=== PATIENT | female | born 1935 | race Caucasian/White ===

== ENCOUNTER 2017-01-04 15:03 | Emergency (ER) | payer OTHER ==
[2017-01-04 15:07] VITALS: TEMP 98.1; BMI 21.9
--- NOTE | 2017-01-04 15:08 | PDOC ---
Rapid Medical Evaluation Time Seen by Provider: 01/04/17 15:06 Medical Evaluation: Allergies Allergy/AdvReac Type Severity Reaction Status Date / Time No Known Allergies Allergy Verified 04/29/14 11:52 01/04/17 15:06 I have performed a brief in person evaluation of this patient. The patient presents with chief complaint of : blood in stool, history of hemorrhoids , no blood thinners, denies abd pain at present Pertinent PE findings: none I have ordered the following: labs The patient will proceed to the ER for further evaluation.
[2017-01-04 15:41] LABS: MCH 33.2 pg (25.7-33.7); MCHC 34.7 g/dl (32.0-36.0); MEAN CELL VOLUME 95.6 fl (80-96); MEAN PLT VOLUME 7.6 fl (7.5-11.1); PLATELET COUNT 277 K/MM3 (134-434); RDW 12.1 % (11.6-15.6); WHITE BLOOD COUNT 6.8 K/mm3 (4.0-10.0)
[2017-01-04 15:46] LABS: INR 0.89 (0.82-1.09); PROTHROMBIN TIME (PATIENT) 10.1 SEC (9.98-11.88)
[2017-01-04 15:48] LABS: ALBUMIN 3.9 g/dl (3.4-5.0); ALK PHOS 80 U/L (45-117); ANION GAP 10 (8-16); BILIRUBIN,TOTAL 0.5 mg/dL (0.2-1.0); CALCIUM 9.2 mg/dL (8.5-10.1); CO2 26 mmol/L (21-32); CREATININE 1.1 mg/dL (0.55-1.02); GLUCOSE,RANDOM 123 mg/dL (74-106); SGOT/AST 17 U/L (15-37); SGPT/ALT 24 U/L (12-78); TOT PROT 7.1 g/dl (6.4-8.2)
--- NOTE | 2017-01-04 15:56 | PDOC ---
History of Present Illness <AnthonyFidelina Mckayla - Last Filed: 01/04/17 17:36> - History of Present Illness Initial Comments: 01/04/17 16:23 Ms. Guerrero is an 81 yo female w/ pmh of htn who presents c/o 1 episode of painless BRB while wiping. She reports she has never had anything like this before and is unsure if it was vaginal or per rectum. She has no other complaints but is very worried. The patient denies chest pain, shortness of breath, headache and dizziness. Denies fever, chills, nausea, vomit, diarrhea and constipation. Denies dysuria, frequency, urgency and hematuria. Allergies: NKDA <Cirilo Can - Last Filed: 01/04/17 17:41> - General Chief Complaint: Rectal Bleed Stated Complaint: RECTAL BLEED Time Seen by Provider: 01/04/17 15:06 Past History <AnthonyFidelinalinh Block - Last Filed: 01/04/17 17:36> - Past Medical History COPD: No HTN: Yes - Suicide/Smoking/Psychosocial Hx Smoking History: Never smoked <Cirilo Can - Last Filed: 01/04/17 17:41> - Past Medical History Allergies/Adverse Reactions: Allergies Allergy/AdvReac Type Severity Reaction Status Date / Time No Known Allergies Allergy Verified 01/04/17 15:06 Home Medications: Ambulatory Orders Metoprolol Tartrate [Lopressor -] 100 mg PO DAILY 04/29/14 Nitrofurantoin Monohyd/M-Cryst [Macrobid -] 100 mg PO BID #20 capsule 01/04/17 Review of Systems - Review of Systems Comments:: 01/04/17 16:27 GENERAL/CONSTITUTIONAL: No fever or chills. No weakness. HEAD, EYES, EARS, NOSE AND THROAT: No change in vision. No ear pain or discharge. No sore throat. CARDIOVASCULAR: No chest pain or shortness of breath RESPIRATORY: No cough, wheezing, or hemoptysis. GASTROINTESTINAL: No nausea, vomiting, diarrhea or constipation. GENITOURINARY: +Incontinence reported today. Mass reported in vaginal area. MUSCULOSKELETAL: No joint or muscle swelling or pain. No neck or back pain. SKIN: No rash NEUROLOGIC: No headache, vertigo, loss of consciousness, or change in strength/ sensation. ENDOCRINE: No increased thirst. No abnormal weight change HEMATOLOGIC/LYMPHATIC: No anemia, easy bleeding, or history of blood clots. ALLERGIC/IMMUNOLOGIC: No hives or skin allergy. <Cirilo Can - Last Filed: 01/04/17 17:41> *Physical Exam - Vital Signs Last Vital Signs Temp Pulse Resp BP Pulse Ox 98.1 F 96 H 20 152/90 97 01/04/17 15:06 01/04/17 15:06 01/04/17 15:06 01/04/17 15:06 01/04/17 15:06 <Fidelina Cruz - Last Filed: 01/04/17 17:36> - Vital Signs Last Vital Signs Temp Pulse Resp BP Pulse Ox 98.1 F 96 H 20 152/90 97 01/04/17 15:06 01/04/17 15:06 01/04/17 15:06 01/04/17 15:06 01/04/17 15:06 - Physical Exam Comments: 01/04/17 16:27 GENERAL: Awake, alert, and fully oriented, in no acute distress HEAD: No signs of trauma, normocephalic, atraumatic EYES: PERRLA, EOMI, sclera anicteric, conjunctiva clear ENT: Auricles normal inspection, hearing grossly normal, nares patent, oropharynx clear without exudates. Moist mucosa NECK: Normal ROM, supple, no lymphadenopathy, JVD, or masses LUNGS: No distress, speaks full sentences, clear to auscultation bilaterally HEART: Regular rate and rhythm, normal S1 and S2, no murmurs, rubs or gallops, peripheral pulses normal and equal bilaterally. ABDOMEN: Soft, nontender, normoactive bowel sounds. No guarding, no rebound. No masses EXTREMITIES: Normal inspection, Normal range of motion, no edema. No clubbing or cyanosis. NEUROLOGICAL: Cranial nerves II through XII grossly intact. Normal speech, normal gait, no focal sensorimotor deficits SKIN: Warm, Dry, normal turgor, no rashes or lesions noted. : Reducible Vaginal prolapse noted. <Cirilo Can - Last Filed: 01/04/17 17:41> ED Treatment Course - LABORATORY CBC & Chemistry Diagram: 01/04/17 15:15 01/04/17 15:15 - ADDITIONAL ORDERS Additional order review: Laboratory Results 01/04/17 01/04/17 15:15 15:15 PT with INR 10.10 INR 0.89 Sodium 140 Potassium 4.4 Chloride 104 Carbon Dioxide 26 Anion Gap 10 BUN 27 H Creatinine 1.1 H Creat Clearance w eGFR 47.67 Random Glucose 123 H Calcium 9.2 Total Bilirubin 0.5 AST 17 ALT 24 Alkaline Phosphatase 80 Total Protein 7.1 Albumin 3.9 01/04/17 15:15 RBC 4.05 MCV 95.6 MCHC 34.7 RDW 12.1 MPV 7.6 <AnthonyFidelinalinh Block - Last Filed: 01/04/17 17:36> - LABORATORY CBC & Chemistry Diagram: 01/04/17 15:15 01/04/17 15:15 - ADDITIONAL ORDERS Additional order review: Laboratory Results 01/04/17 15:15 Sodium 140 Potassium 4.4 Chloride 104 Carbon Dioxide 26 Anion Gap 10 BUN 27 H Creatinine 1.1 H Creat Clearance w eGFR 47.67 Random Glucose 123 H Calcium 9.2 Total Bilirubin 0.5 AST 17 ALT 24 Alkaline Phosphatase 80 Total Protein 7.1 Albumin 3.9 <Cirilo Can - Last Filed: 01/04/17 17:41> Medical Decision Making - Medical Decision Making 01/04/17 17:18 Ms. Guerrero presents with acute vaginal prolapse after straining during BM. Easily reducible. Will consult OBGYN and follow-recommendations as given. 01/04/17 17:[address] Blanco for at 10 am. Patient verbalized understanding and will present for evaluation. <Cirilo Can - Last Filed: 01/04/17 17:41> *DC/Admit/Observation/Transfer <Fidelina Cruz - Last Filed: 01/04/17 17:36> <Cirilo Can - Last Filed: 01/04/17 17:41> Diagnosis at time of Disposition: Vaginal prolapse - Discharge Dispostion Disposition: HOME - Prescriptions Prescriptions: Nitrofurantoin Monohyd/M-Cryst [Macrobid -] 100 mg PO BID #20 capsule - Referrals Referrals: Ariel Fernandes MD [Primary Care Provider] - Samantha Blanco MD [Staff Physician] - - Patient Instructions Printed Discharge Instructions: DI for Vaginal Prolapse Additional Instructions: YOU HAVE AN APPOINTMENT THIS WednesdayJANUARY 07 [address] SAMANTHA BLANCO
--- NOTE | 2017-01-04 17:27 | PDOC ---
Attending Attestation - Resident Resident Name: Cirilo Can - ED Attending Attestation I have performed the following: I have examined & evaluated the patient, The case was reviewed & discussed with the resident, I agree w/resident's findings & plan, Exceptions are as noted - HPI HPI: 01/04/17 17:26 81 yo female p/w sudden vaginal blood and incontinence - Physicial Exam PE: 01/04/17 17:27 81 yo female alert and conversant head normocepjhalic,no evidence od f trauma neck supple,no jvd lungs cta b/l cvs [id number] abd sot nontender rectal no blood vaginal prolapse ext no edema,no erythema,no deformity skin warm,dry neuro axox3,ambulatory,no gross focal neuro deficits - Medical Decision Making 01/04/17 17:[address] Marya Holden ,pt has appt now 10 am at [address]
[2017-01-04] MEDS ORDERED: NITROFURANTOIN MACROCRYSTAL 50 MG CAPSULE (FP) ONE (17:44)
[2017-01-04] MEDS ORDERED: NITROFURANTOIN MACROCRYSTAL 50 MG CAPSULE (FP) PO SCH (17:45)
[2017-01-04 17:50] VITALS: BP 148/66; PULSE 89
== END 2017-01-04 17:56 | disposition home or self-care (01) ==
LOC: JER 15:03
DX: N81.10 Cystocele, unspecified (principal); I10 Essential (primary) hypertension
CPT/HCPCS: 36415; 80053; 85027; 85610; 99282-25

== ENCOUNTER 2017-02-16 13:07 | Day surgery (SDC) | payer OTHER ==
[2017-02-15 11:25] VITALS: BMI 21.9
[2017-02-16] MEDS ORDERED: ceFAZolin SODIUM 1 GM VIAL ONE (14:14)
[2017-02-16] MEDS ORDERED: LIDOCAINE 1%/EPI 1:100000 (20 ML MULTI DOSE VIAL) ONE (16:01)
[2017-02-16] MEDS ORDERED: ROCURONIUM BROMIDE 50 MG/5 ML VIAL ONE (16:12)
[2017-02-16] MEDS ORDERED: PROPOFOL 20 ML ONE (16:12)
[2017-02-16] MEDS ORDERED: fentaNYL CITRATE 250 MCG/5 ML VIAL ONE (16:12)
[2017-02-16] MEDS ORDERED: SUCCINYLCHOLINE CHLORIDE 200 MG/10 ML VIAL ONE (16:12)
[2017-02-16] MEDS ORDERED: LIDOCAINE HCL/PF 2% SDV 5ML VIAL ONE (16:14)
[2017-02-16] MEDS ORDERED: DESFLURANE GAS 240 ML BOTTLE IH ONE (16:25)
--- NOTE | 2017-02-16 16:39 | HP ---
History & Physical Update - History History: No Change - Physical Physical: No Change - Assessment Assessment: No Change - Plan Plan: No Change
[2017-02-16] MEDS ORDERED: PHENYLEPHRINE HCL 10 MG/1 ML SINGLE DOSE VIAL ONE (16:49)
[2017-02-16] MEDS ORDERED: ceFAZolin SODIUM 1 GM VIAL IVPB ONE (16:55)
[2017-02-16] MEDS ORDERED: BUPIVACAINE HCL/PF 0.5% (5MG/ML) 10 ML VIAL IJ ONE (17:12)
[2017-02-16] MEDS ORDERED: DEXAMETHASONE SOD PHOSPHATE 4 MG/1 ML VIAL ONE (18:40)
[2017-02-16] MEDS ORDERED: KETOROLAC TROMETHAMINE 30 MG/1 ML VIAL ONE (18:40)
[2017-02-16] MEDS ORDERED: diphenhydrAMINE HCL 25 MG CAPSULE (FP) PO PRN (18:46)
[2017-02-16] MEDS ORDERED: ONDANSETRON 4 MG/2 ML VIAL IVPB PRN (18:46)
[2017-02-16] MEDS ORDERED: HYDROmorphone HCL CARPU-JECT 2 MG/1 ML DISP.SYRIN IVPUSH PRN ×2 (18:46→19:13)
[2017-02-16] MEDS ORDERED: METOCLOPRAMIDE HCL INJECTION 10 MG/2 ML VIAL IVPUSH PRN (18:46)
[2017-02-16] MEDS ORDERED: PROCHLORPERAZINE INJECTION 10 MG/2 ML VIAL IVPB PRN (18:46)
[2017-02-16] MEDS ORDERED: oxyCODONE HCL 5 MG TABLET PO PRN (18:50)
--- NOTE | 2017-02-16 18:55 | OP ---
Operative Note - Note: Operative Date: 02/16/17 Pre-Operative Diagnosis: right adnexal mass Operation: Robotic hysterectomy, bilateral salpingoophorectomy Findings: Right ovary with 8 cm cystic mass, smooth. Normal left tube and ovary, normal uterus. Grade 3 descensus Post-Operative Diagnosis: Same as Pre-op Surgeon: Leola Goodman Scrub Woman: Marya Blanco Anesthesia: General, Local Specimens Removed: uterus, cervix, bilateral tubes and ovaries, washings Estimated Blood Loss (mls): 25 Operative Report Dictated: Yes
[2017-02-16] MEDS ORDERED: GLYCOPYRROLATE 0.2 MG/1 ML VIAL ONE (18:59)
[2017-02-16] MEDS ORDERED: NEOSTIGMINE METHYLSULFATE 0.5 MG/1 ML - 10 ML MDV ONE (18:59)
[2017-02-16] MEDS ORDERED: ONDANSETRON 4 MG/2 ML VIAL ONE (19:05)
[2017-02-16] MEDS ORDERED: PROMETHAZINE HCL 25 MG/1 ML VIAL IVPUSH PRN (19:27)
[2017-02-16] MEDS ORDERED: LORazepam 2 MG/ML SDV VIAL IVPUSH ONE (19:30)
[2017-02-16] MEDS ORDERED: HYDROmorphone HCL CARPU-JECT 2 MG/1 ML DISP.SYRIN ONE (19:37)
[2017-02-16] MEDS ORDERED: KETOROLAC TROMETHAMINE 15 MG/ML VIAL ONE (21:04)
[2017-02-16] MEDS: KETOROLAC TROMETHAMINE 15 MG/ML VIAL IVPUSH SCH (21:06)
[2017-02-16] MEDS: LACTATED RINGERS SOLUTION 1,000 ML IV SCH ×2 (21:40→22:58)
[2017-02-16] MEDS: ACETAMINOPHEN 325 MG TABLET (FP) PO SCH (22:55)
[2017-02-17] MEDS: ACETAMINOPHEN 325 MG TABLET (FP) PO SCH ×3 (00:48→13:47)
[2017-02-17] MEDS: KETOROLAC TROMETHAMINE 15 MG/ML VIAL IVPUSH SCH ×2 (02:59→09:46)
[2017-02-17 08:09] LABS: HEMATOCRIT 33.3 % (32.4-45.2); HEMOGLOBIN 11.1 GM/dL (10.7-15.3); MCH 31.9 pg (25.7-33.7); MCHC 33.2 g/dl (32.0-36.0); MEAN CELL VOLUME 96.1 fl (80-96); MEAN PLT VOLUME 7.2 fl (7.5-11.1); PLATELET COUNT 280 K/MM3 (134-434); RBC 3.46 M/mm3 (3.60-5.2); RDW 12.1 % (11.6-15.6); WHITE BLOOD COUNT 10.3 K/mm3 (4.0-10.0)
--- NOTE | 2017-02-17 08:36 | PN ---
Progress Note (short form) - Note Progress Note: Post op day#1.S/p Robotic,laproscopic hysterectomy with BSO under GA uneventful.Patient stable.No any anesthesia related problem.Patient DC from the anesthesia care.
--- NOTE | 2017-02-17 09:15 | PN ---
Progress Note, Physician Chief Complaint: 81 yo post Robotic TH/BSO, POD # 1 History of Present Illness: Patient voided 3 times, + flatus, tolerating regular diet, ambulating pain well controlled - Current Medication List Current Medications: Active Medications Acetaminophen (Tylenol -) 650 mg PO Q6HPO [facility] Last Admin: 02/17/17 05:29 Dose: 650 mg Amlodipine Besylate (Norvasc -) 5 mg PO DAILY [facility] Diphenhydramine HCl (Benadryl -) 25 mg PO Q6H PRN PRN Reason: FOR ITCHING Hydromorphone HCl (Dilaudid Injection -) 0.5 mg IVPUSH Q3H PRN PRN Reason: PAIN Hydromorphone HCl (Dilaudid Injection -) 0.5 mg IVPUSH [id number] PRN PRN Reason: PAIN Last Admin: 02/16/17 19:38 Dose: 0.5 mg Lactated Ringer's (Lactated Ringers Solution) 1,000 mls @ 75 mls/hr IV ASDIR [facility] Last Admin: 02/16/17 22:58 Dose: Not Given Ketorolac Tromethamine (Toradol Injection -) 15 mg IVPUSH Q6H-IV [facility] Stop: 02/21/17 20:59 Last Admin: 02/17/17 02:59 Dose: 15 mg Lisinopril (Prinivil) 40 mg PO DAILY [facility] Metoclopramide HCl (Reglan Injection -) 10 mg IVPUSH Q6H PRN PRN Reason: NAUSEA AND/OR VOMITING Metoprolol Succinate (Toprol Xl -) 100 mg PO DAILY [facility] Ondansetron HCl (Zofran Injection) 8 mg IVPB Q8H PRN PRN Reason: NAUSEA Oxycodone HCl (Roxicodone -) 5 mg PO Q4H PRN PRN Reason: PAIN Prochlorperazine Edisylate (Compazine Injection -) 25 mg IVPB Q6H PRN PRN Reason: NAUSEA AND/OR VOMITING Promethazine HCl (Phenergan Injection -) 6.25 mg IVPUSH Q6H PRN PRN Reason: NAUSEA-FOR RESCUE AFTER 15 MIN Ranitidine HCl (Zantac -) 150 mg PO DAILY [facility] - Objective Vital Signs: Vital Signs Temperature 97.9 F 01/10/18 05:35 Pulse Rate 83 02/17/17 05:35 Respiratory Rate 18 02/17/17 05:35 Blood Pressure 125/56 02/17/17 05:35 O2 Sat by Pulse Oximetry (%) 96 02/16/17 23:52 Constitutional: Yes: Well Nourished HENT: Yes: Atraumatic, Normocephalic Cardiovascular: Yes: Regular Rate and Rhythm Respiratory: Yes: CTA Bilaterally Gastrointestinal: Yes: Normal Bowel Sounds, Soft (well healing puncture incisions) Genitourinary: Yes: WNL (no CVA tenderness) Musculoskeletal: Yes: WNL Extremities: Yes: WNL Edema: No Wound/Incision: Yes: Clean/Dry, Well Approximated Neurological: Yes: WNL, Alert, Oriented ...Motor Strength: WNL Psychiatric: Yes: WNL, Alert, Oriented Labs: CBC, BMP 02/17/17 06:00 Assessment/Plan 81yo Post Robotic TH/BSO for Right ovarian mass fz benign VSS, Afibrile, Pain well controlled h/h stable Plan to d/c home follow up with Dr. Goodman and Bella arranged
[2017-02-17 09:24] LABS: CHLORIDE 104 mmol/L (98-107); POTASSIUM 4.9 mmol/L (3.5-5.1); SODIUM 137 mmol/L (136-145)
[2017-02-17 09:41] LABS: ANION GAP 12 (8-16); BLOOD UREA NITROGEN 27 mg/dL (7-18); CO2 21 mmol/L (21-32); CREATININE 1.1 mg/dL (0.55-1.02); GLUCOSE,RANDOM 106 mg/dL (74-106)
[2017-02-17 09:42] VITALS: BP 112/48; PULSE 90; TEMP 98.9
[2017-02-17] MEDS ORDERED: amLODIPine BESYLATE 5 MG TABLET (FP) PO SCH (10:00)
[2017-02-17] MEDS ORDERED: RANITIDINE HCL 150 MG TABLET (FP) PO SCH (10:00)
[2017-02-17] MEDS ORDERED: PATIENT'S OWN MEDICATION (NON-FORMULARY) (Amlodipine Besylate/Benazepril [Lotrel 5-40 Mg C PO SCH (10:00)
[2017-02-17] MEDS ORDERED: METOPROLOL SUCCINATE 100 MG TAB.SR.24H (FP) PO SCH (10:00)
[2017-02-17] MEDS ORDERED: LISINOPRIL 20 MG TABLET (FP) PO SCH (10:00)
--- NOTE | 2017-02-17 10:59 | OP ---
DATE OF OPERATION: 02/16/2017 PREOPERATIVE DIAGNOSIS: Right adnexal mass. POSTOPERATIVE DIAGNOSIS: Right adnexal mass. PROCEDURE: Robotic-assisted total hysterectomy and bilateral salpingo-oophorectomy. SURGEON: Leola Goodman MD CO-SURGEON: Marya Blanco MD ANESTHESIA: General endotracheal and local. ESTIMATED BLOOD LOSS: 25 mL. COMPLICATIONS: None. INDICATIONS: This is an 81-year-old 2, para 2, with history of urinary incontinence. She had a pelvic ultrasound which showed a 9-cm septated mass. CA 125 was 11 on January 07, 2017. Patient was counseled regarding surgical management. Risks, benefits, indications, and alternatives were discussed with the patient. All questions were answered. Informed consent was signed. FINDINGS: A grade 3 uterine descensus, cervix and vagina with no lesions. Intraabdominal findings, normal liver edge, normal 6-week size uterus, left tube and ovary normal, an 8-cm right ovarian cyst with smooth wall. There was no other evidence of disease. DESCRIPTION OF PROCEDURE: The patient was taken to the operating room, placed in the dorsal supine position. General endotracheal anesthesia was obtained without difficulty. She was then placed in the dorsal lithotomy position, prepped and draped in a normal sterile fashion. Steven catheter was placed in the bladder. Speculum was placed in the vagina. The cervix was grasped with a single-tooth tenaculum. A figure-of-8 stitch of 0 Vicryl was placed, and a VCare uterine manipulator was placed. Tenaculum and speculum were then removed. Attention was turned to the patients abdomen. Then, 5 mL of 0.25% Marcaine was injected into the umbilicus, and an 8-mm incision was made with a scalpel. While tenting the anterior abdominal wall, the Veress needle was inserted intraabdominally, and the abdomen was insufflated with CO2 gas. Then, 8-mm trocars were placed in the left mid and right mid quadrants, and a 5-mm aerosol port was placed in the left lower quadrant. All trocars were placed under direct visualization after injecting 0.25% Marcaine. A thorough examination of the abdomen and pelvis revealed the above noted findings. The da Peg Robot was then docked without difficulty. Peritoneal washings were taken using normal saline. The left adnexa was elevated. Left ureter was noted to be well away from the field of dissection. Left infundibulopelvic ligament was clamped, cauterized, and transected. This was carried through the broad ligament and the round ligament and the vesicouterine peritoneum anteriorly. The right adnexa was elevated. The right ureter was noted to be well away from the field of dissection. The right infundibulopelvic ligament was clamped, cauterized, and transected. This was carried through the broad ligament and the round ligament and the vesicouterine peritoneum anteriorly. The bladder was dissected off the anterior cervix and upper vagina. The uterine arteries bilaterally were cauterized. They were clamped, cauterized, and transected. The cardinal ligaments were serially clamped, cauterized, and transected. Then, the uterosacral ligament were clamped, cauterized, and transected. The vaginotomy incision was made circumferentially around the cervix. Uterus, cervix, left tube and ovary were passed through the vagina, and the right tube and ovary were passed through an EndoCatch bag through the vagina. The cyst was taken out intact. The vagina was closed in a running continuous fashion using 2-0 V-Loc suture. The pelvis was thoroughly irrigated and noted to be hemostatic. All instruments were removed from the patients abdomen. The da Peg robot was then undocked. Skin was closed with 4-0 Monocryl, and Dermabond was applied. The patient was extubated and transferred in stable condition to PACU. Nicole [id number]
--- NOTE | 2017-02-18 14:50 | PATH ---
Surgical Pathology Report Patient Name: TIM MADERA [facility]. Rec. #: [id number] /Age/Gender: 1935 (Age: 81) / F Account: [id number] Location: [facility] Taken: 02/16/2017 Received: 02/16/2017 Reported: 02/18/2017 Physicians: Leola Goodman MD Specimen(s) Received A: RIGHT OVARIAN CYST B: UTERUS, CERVIX, WITH OR WITH LEFT TUBE AND OVARY Clinical History Right adnexal mass Intraoperative Consult Diagnosis Right ovarian cyst, frozen section: Benign serous cystadenoma. No malignant features identified grossly or on operations support representative frozen section. Lilliam Zamora M.D., February 16, 2017 Final Diagnosis A. RIGHT FALLOPIAN TUBE AND OVARY, SALPINGO-OOPHORECTOMY: OVARY WITH BENIGN SEROUS CYSTADENOMA, BENIGN FALLOPIAN TUBE. B. UTERUS AND CERVIX WITH LEFT FALLOPIAN TUBE AND OVARY, HYSTERECTOMY AND SALPINGO-OOPHORECTOMY: UTERUS AND CERVIX, 51 GRAMS, WITH 2 LEIOMYOMAS, ATROPHIC ENDOMETRIUM, CERVIX WITH CHRONIC INFLAMMATION, AND MEDIAL CALCIFICATION OF MYOMETRIAL BLOOD VESSELS. BENIGN LEFT FALLOPIAN TUBE AND OVARY PRESENT. Electronically Signed Johnathon Zamora M.D. Gross Description A. Received fresh labeled "right ovarian cyst" is a 155 gram, 14 x 8 x 4.5 cm multiloculated cystic mass with a smooth surface. There is a 15 x 0.3 cm attached possible fallopian tube. Cut surface reveals a smooth riley lining with no solid or papillary areas. The cyst is filled with clear yellow serous fluid. [employer] sections are frozen, and the frozen remainder is submitted in cassette FS A1. Additional sections will be submitted after overnight fixation. Additional sections are submitted in cassettes A2-A7 B. Received in formalin labeled "uterus, cervix, left fallopian tube and ovary," is a 51 g hysterectomy specimen including a uterus, attached cervix and an attached left fallopian tube and left ovary., The specimen measures 7.5 cm from superior to inferior, 4.5 cm from left to right and 2.5 cm from anterior to posterior. The cervix measures 3 cm in length and averages 1.7 cm in diameter. The ectocervix is iqbal, smooth and glistening. The endocervix is unremarkable. The endometrial cavity measures 3.2 cm in length and 2.2 cm from cornu to cornu. The endometrium is iqbal-pink and averages 0.1 cm in thickness. The myometrium displays 2 intramural nodules measuring 0.6 and 0.8 cm in greatest dimension. The cut surface of the nodules is iqbal, rubbery and displays whorled architecture. No areas of hemorrhage or necrosis are identified. The remaining myometrium is iqbal-pink and averages 1.2 cm in thickness. The left fimbriated fallopian tube measures 4.5 cm in length. The outer surface is iqbal with attached fat and abundant, multifocal paratubal cysts averaging 0.3 cm in greatest dimension. The attached left ovary measures 2.5 x 0.8 x 0.8 cm. The outer surface is iqbal, convoluted and smooth. Sectioning reveals unremarkable ovarian parenchyma. [employer] sections are submitted in 10 cassettes as follows: 1-anterior cervix; 2-posterior cervix; 6-1-vbwvgjng endomyometrium; 6-7-idtglddzs endomyometrium; 7-intramural nodules; 8-left fallopian tube fimbria; 2-akvco-cfgbqaik of left fallopian tube; 10-left ovary. REECE/02/16/2017 [facility]02/16/2017
== END 2017-02-17 13:41 | disposition home or self-care (01) ==
LOC: JASU-SURG 13:07 → J7W 22:05 → JASU-SURG 02-17 13:41
PROVIDERS: ATTEND Obstetrics & Gynecology Gynecologic Oncology
PROC: 0UT7FZZ Resection of Bilateral Fallopian Tubes, Via Natural or Artificial Opening With Percutaneous Endoscopic Assistance (ICD-10-PCS; 2017-02-16)
PROC: 0UT9FZZ Resection of Uterus, Via Natural or Artificial Opening With Percutaneous Endoscopic Assistance (ICD-10-PCS; principal; 2017-02-16 15:00)
PROC: 0UT2FZZ Resection of Bilateral Ovaries, Via Natural or Artificial Opening With Percutaneous Endoscopic Assistance (ICD-10-PCS; 2017-02-16 15:00)
DX: D27.0 Benign neoplasm of right ovary (principal); D25.9 Leiomyoma of uterus, unspecified; N85.8 Other specified noninflammatory disorders of uterus; N72 Inflammatory disease of cervix uteri
CPT/HCPCS: 36415; 80048; 85027; 86850; 86900; 86901; 88307-TC; 88331-TC; 94010; 94760

== ENCOUNTER 2017-02-19 07:42 | Inpatient (IN) | payer OTHER ==
[2017-02-19] MEDS ORDERED: dilTIAZem HCL 50 MG/10 ML - 10 ML VIAL IVPUSH ONE ×3 (07:55→09:11)
--- NOTE | 2017-02-19 08:23 | PDOC ---
Attending Attestation - Medical Decision Making 02/19/17 13:45 First call placed to Dr. Hale at 13:45. Awaiting call back. Second call placed to Dr. Hale at 14:25. Awaiting call back. First call placed to Dr. Falcon at 15:58. Awaiting call back. Case discussed with Dr. Falcon at 16:19. Multiple pages placed overhead to Dr. Fuller, will call service. First call placed to Dr. Fuller's answering service at 16:04. Awaiting call back. Second call placed to Dr. Fuller at 16:24. Case discussed at this time. First call placed to Dr. Goodman at 16:37. Case discussed at this time. Documentation prepared by Marisela López, acting as certified ophthalmic medical technician for Darius Garcia MD. <Marisela López - Last Filed: 02/19/17 16:37> - Resident Resident Name: Blayne Millan - ED Attending Attestation I have performed the following: I have examined & evaluated the patient, The case was reviewed & discussed with the resident, I agree w/resident's findings & plan, Exceptions are as noted - HPI HPI: 02/19/17 08:22 81y F hx of htn, 3 day ss/p hysterectomy presents with complaint of burning chest/epigastric pain. Pt states that since dc she has been having alot of abd pain that worsened significantly last night. She endorses feeling pain when walter urinates an feeling like she needs to go to ebathroom. She denies any sob, palpitatoins,numbness.tingling/weakness, vision changes, lightheadedness, fever/ chills, vomiting. per EMS, she was noted to be in the 180s-190s HR, SVT vs afib - was given adenosine 6 followed by 12 that failed to break the rhthm - no p waves were seen - pt was started on dilitaizem by EMS with improvement of her ratne. on arrival, her HR was 130s and irregularly irregular. she was given another 30mg of diltiazem here with improvement to 90s but increased again to 130s. Given another 20mg of dilitaizem. pt denies hx of afib, denies any prior similar episodes of pain. on exam the pt has moderate diffuse epigastric tenderness, wounds are c/d/i on abdomen lungs are clear HR is irregularly irregular no LE edema, no calf tenderness ddx: gerd, pe (as pt is hypoxic, new afib), acs, ?ischemia will ck labs diltiazem IV with PO chaser ekg pt placed on threat monitoring analyst will start a/c CRITICAL CARE DOCUMENTATION: I spent ~35 minutes of Critical Care time, excluding separately billable procedures, involving high complexity decision making to assess, manipulate and support vital system function(s) to treat single or multiple vital organ system failure and/or to prevent further life threatening deterioration of the patient' s condition. - Physicial Exam PE: 02/21/17 08:09 see above - Medical Decision Making 02/19/17 12:59 pts repeat ekg noted for sinus rythjma seems like spontaneously resolution of her afib to nsr will d/w surgery will admit for further management 02/19/17 15:57 pt orginally presente dwith severe intermittent epgiastric/chest pain - ? suspect he rpain may be secondary to her hiatal hernia? her pain is largely resolved currently kimberli grier - requests dr. Falcon for ocnsultation. 02/19/17 16:[address] Sade Fuller - (Cardiology) pt thom llikely need a/'c - but requests d/w surgeon to confirm there is no concern for intrabdominal bleeding, and if they feel a/c can be started we will start something will call dr. will case dw dr latasha navarro to see the patient - but requetss formal consult from dr. will 02/19/17 16:[address] goodman - states that she would gladly come to evaluate the patient if we thikn this may be post op complication but she notes the pt has had this pain preceeding her surgery (epigastric/chest burning) and she thinks it may be the gastritis/gerd. she is also ok with a/c for her afib as there aer no overt signs of bleeding, anemia, or free fluid in her abdomen. CRITICAL CARE DOCUMENTATION: I spent ~45 minutes of Critical Care time, excluding separately billable procedures, involving high complexity decision making to assess, manipulate and support vital system function(s) to treat single or multiple vital organ system failure and/or to prevent further life threatening deterioration of the patient' s condition. <Darius Garcia - Last Filed: 02/21/17 08:09>
[2017-02-19 08:41] LABS: BASO % 0.1 % (0-2.0); HEMATOCRIT 34.7 % (32.4-45.2); HEMOGLOBIN 11.5 GM/dL (10.7-15.3); LYMPH % 5.6 % (8-40); MCH 31.5 pg (25.7-33.7); MCHC 33.1 g/dl (32.0-36.0); MEAN CELL VOLUME 95.2 fl (80-96); MEAN PLT VOLUME 7.4 fl (7.5-11.1); NEUT % 87.3 % (42.8-82.8); PLATELET COUNT 298 K/MM3 (134-434); RBC 3.64 M/mm3 (3.60-5.2); RDW 12.1 % (11.6-15.6)
[2017-02-19 08:42] LABS: INR 0.93 (0.82-1.09); PROTHROMBIN TIME (PATIENT) 10.5 SEC (9.98-11.88)
[2017-02-19 08:44] VITALS: BMI 22.3
[2017-02-19 08:45] LABS: ACTIVATED PTT 26.4 SECONDS (26.9-34.4)
[2017-02-19 08:52] LABS: ALBUMIN 2.9 g/dl (3.4-5.0); ANION GAP 16 (8-16); BILIRUBIN,TOTAL 0.7 mg/dL (0.2-1.0); BLOOD UREA NITROGEN 17 mg/dL (7-18); CALCIUM 8.5 mg/dL (8.5-10.1); CHLORIDE 101 mmol/L (98-107); CO2 20 mmol/L (21-32); CREATININE 0.9 mg/dL (0.55-1.02); GLUCOSE,RANDOM 117 mg/dL (74-106); MAGNESIUM 1.8 mg/dL (1.8-2.4); PHOSPHOROUS 1.7 mg/dL (2.5-4.9); POTASSIUM 3.7 mmol/L (3.5-5.1); SGOT/AST 19 U/L (15-37); SGPT/ALT 21 U/L (12-78); SODIUM 137 mmol/L (136-145); TOT PROT 5.6 g/dl (6.4-8.2)
[2017-02-19 08:56] LABS: ALK PHOS 65 U/L (45-117)
[2017-02-19] MEDS ORDERED: SODIUM CHLORIDE 500 ML IV STA (09:16)
[2017-02-19] MEDS ORDERED: dilTIAZem HCL 30 MG TABLET (FP) PO ONE (09:21)
[2017-02-19] MEDS ORDERED: PANTOPRAZOLE SODIUM 40 MG VIAL IVPUSH ONE (09:25)
[2017-02-19] MEDS ORDERED: morphine CARPU-JECT 4 MG/1 ML DISP.SYRIN IVPUSH ONE (09:25)
[2017-02-19] MEDS ORDERED: MAG HYDROX/AL HYDROX/SIMETH 355 ML ORAL.SUSP PO ONE (09:43)
[2017-02-19] MEDS ORDERED: ONDANSETRON 4 MG/2 ML VIAL IVPB ONE (09:43)
--- NOTE | 2017-02-19 11:25 | PDOC ---
History of Present Illness - History of Present Illness Initial Comments: 02/19/17 11:25 81y F hx of htn s/p hysterectomy 3 days ago presents with complaint of burning chest/epigastric pain since last night. She complains of increased urinary frequency since last night with the pain getting worse. She ate a soft boiled egg for dinner. She denies any sob, numbness.tingling/weakness, vision changes, lightheadedness , fever/chills. per EMS, she was noted to be in the 180s-190s HR, SVT vs afib - was given adenosine 6 followed by 12 that failed to break the rhthm - no p waves were seen - pt was started on dilitaizem by EMS with improvement of her rate. on arrival, her HR was 130s and irregularly irregular. she was given another 30mg of diltiazem here with improvement to 90s but increased again to 130s. Given another 20mg of dilitaizem. pt denies hx of afib, denies any prior similar episodes of pain. 02/19/17 11:28 <Blayne Millan - Last Filed: 02/19/17 13:39> <Marisela López - Last Filed: 02/19/17 13:45> <Darius Garcia - Last Filed: 02/19/17 15:27> - General Chief Complaint: Chest Pain Stated Complaint: CHEST PAIN Time Seen by Provider: 02/19/17 07:44 Past History - Past Medical History Anemia: No Asthma: No Cancer: No Cardiac Disorders: No CVA: No COPD: No CHF: No DVT: No Dementia: No Diabetes: No GI Disorders: No Disorders: No HTN: Yes Hypercholesterolemia: No Liver Disease: No Seizures: No Thyroid Disease: No - Suicide/Smoking/Psychosocial Hx Smoking History: Never smoked Have you smoked in the past 12 months: No Information on smoking cessation initiated: No Hx Alcohol Use: Yes (occas) Drug/Substance Use Hx: No Substance Use Type: Alcohol <Blayne Millan - Last Filed: 02/19/17 13:39> <Marisela López - Last Filed: 02/19/17 13:45> <Darius Garcia - Last Filed: 02/19/17 15:27> - Past Medical History Allergies/Adverse Reactions: Allergies Allergy/AdvReac Type Severity Reaction Status Date / Time No Known Allergies Allergy Verified 02/19/17 07:47 Home Medications: Ambulatory Orders Metoprolol Tartrate [Lopressor -] 100 mg PO DAILY 04/29/14 Amlodipine Besylate/Benazepril [Lotrel 5-40 mg Capsule] 1 each PO DAILY Review of Systems - Review of Systems Able to Perform ROS?: Yes Is the patient limited Ukrainian proficient: No Constitutional: Yes: See HPI HEENTM: No: Symptoms Reported Respiratory: Yes: See HPI Cardiac (ROS): Yes: See HPI ABD/GI: Yes: See HPI : No: Symptoms Reported Musculoskeletal: No: Symptoms Reported Integumentary: No: Symptoms Reported Neurological: No: Symptoms reported All Other Systems: Reviewed and Negative <Blayne Millan - Last Filed: 02/19/17 13:39> *Physical Exam - Vital Signs Last Vital Signs Temp Pulse Resp BP Pulse Ox 98.4 F 92 H 16 119/51 95 02/19/17 07:50 02/19/17 09:50 02/19/17 09:50 02/19/17 09:50 02/19/17 09:50 - Physical Exam General Appearance: Yes: Nourished, Appropriately Dressed. No: Apparent Distress HEENT: positive: EOMI, JUAN CARLOS, Normal ENT Inspection Respiratory/Chest: positive: Lungs Clear, Normal Breath Sounds. negative: Chest Tender, Respiratory Distress Cardiovascular: positive: Tachycardia Gastrointestinal/Abdominal: positive: Normal Bowel Sounds, Soft, Distended <Blayne Millan - Last Filed: 02/19/17 13:39> - Vital Signs Last Vital Signs Temp Pulse Resp BP Pulse Ox 98.4 F 75 16 121/55 95 02/19/17 07:50 02/19/17 11:36 02/19/17 11:36 02/19/17 11:36 02/19/17 11:36 <Marisela López - Last Filed: 02/19/17 13:45> - Vital Signs Last Vital Signs Temp Pulse Resp BP Pulse Ox 98.4 F 81 16 135/59 97 02/19/17 07:50 02/19/17 14:59 02/19/17 14:59 02/19/17 14:59 02/19/17 14:59 <Jose,Darius - Last Filed: 02/19/17 15:27> ED Treatment Course - LABORATORY CBC & Chemistry Diagram: 02/19/17 08:05 02/19/17 08:05 - ADDITIONAL ORDERS Additional order review: Laboratory Results 02/19/17 02/19/17 02/19/17 09:28 08:05 08:05 PT with INR INR PTT (Actin FS) D-Dimer 4054 H Sodium Potassium Chloride Carbon Dioxide Anion Gap BUN Creatinine Creat Clearance w eGFR Random Glucose Lactic Acid 1.2 Calcium Phosphorus Magnesium Total Bilirubin AST ALT Alkaline Phosphatase Creatine Kinase Troponin I Total Protein Albumin TSH 0.66 D 02/19/17 02/19/17 08:05 08:05 PT with INR 10.50 INR 0.93 PTT (Actin FS) 26.4 L D-Dimer Sodium 137 Potassium 3.7 Chloride 101 Carbon Dioxide 20 L Anion Gap 16 BUN 17 Creatinine 0.9 Creat Clearance w eGFR > 60 Random Glucose 117 H Lactic Acid Calcium 8.5 Phosphorus 1.7 L Magnesium 1.8 Total Bilirubin 0.7 AST 19 D ALT 21 D Alkaline Phosphatase 65 Creatine Kinase 138 Troponin I 0.04 Total Protein 5.6 L Albumin 2.9 L TSH 0.64 02/19/17 08:05 RBC 3.64 MCV 95.2 MCHC 33.1 RDW 12.1 MPV 7.4 L Neutrophils % 87.3 H Lymphocytes % 5.6 L Monocytes % 7.0 Eosinophils % 0.0 Basophils % 0.1 - RADIOLOGY Radiology Studies Ordered: Category Date Time Status ABDOMEN/PELVIS CTA W/WO CONTR [CT] Stat CT Scan 02/19/17 11:00 Taken CHEST CTA [CT] Stat CT Scan 02/19/17 11:10 Taken CHEST X-RAY PORTABLE* [RAD] Stat Radiology 02/19/17 07:51 Completed - Medications Given in the ED: ED Medications Discontinued Medications Generic Name Dose Route Start Last Admin Trade Name Freq PRN Reason Stop Dose Admin Al Hydroxide/Mg Hydroxide 30 ml 02/19/17 09:43 02/19/17 09:50 Mylanta Suspension - PO 02/19/17 09:44 30 mg ONCE ONE Administration Diltiazem HCl 10 mg 02/19/17 07:58 02/19/17 08:04 Cardizem Injection - IVPUSH 02/19/17 07:59 10 mg ONCE ONE Administration Diltiazem HCl 20 mg 02/19/17 09:11 02/19/17 09:12 Cardizem Injection - IVPUSH 02/19/17 09:12 20 mg ONCE ONE Administration Diltiazem HCl 30 mg 02/19/17 09:21 02/19/17 09:49 Cardizem - PO 02/19/17 09:22 30 mg ONCE ONE Administration Diltiazem HCl 20 mg 02/19/17 07:55 02/19/17 08:30 Cardizem Injection - IVPUSH 02/19/17 07:56 20 mg ONCE ONE Administration Sodium Chloride 500 mls @ 500 mls/hr 02/19/17 09:16 02/19/17 09:35 Normal Saline - IV 02/19/17 10:15 500 mls/hr ASDIR STA Administration Morphine Sulfate 4 mg 02/19/17 09:25 02/19/17 09:34 Morphine Injection - IVPUSH 02/19/17 09:26 4 mg ONCE ONE Administration Ondansetron HCl 4 mg 02/19/17 09:43 02/19/17 09:50 Zofran Injection IVPB 02/19/17 09:44 4 mg ONCE ONE Administration Pantoprazole Sodium 40 mg 02/19/17 09:25 02/19/17 09:34 Protonix Iv IVPUSH 02/19/17 09:26 40 mg ONCE ONE Administration <Blayne Millan - Last Filed: 02/19/17 13:39> - LABORATORY CBC & Chemistry Diagram: 02/19/17 08:05 02/19/17 08:05 - ADDITIONAL ORDERS Additional order review: Laboratory Results 02/19/17 02/19/17 02/19/17 09:28 08:05 08:05 PT with INR INR PTT (Actin FS) D-Dimer 4054 H Sodium Potassium Chloride Carbon Dioxide Anion Gap BUN Creatinine Creat Clearance w eGFR Random Glucose Lactic Acid 1.2 Calcium Phosphorus Magnesium Total Bilirubin AST ALT Alkaline Phosphatase Creatine Kinase Troponin I Total Protein Albumin TSH 0.66 D 02/19/17 02/19/17 08:05 08:05 PT with INR 10.50 INR 0.93 PTT (Actin FS) 26.4 L D-Dimer Sodium 137 Potassium 3.7 Chloride 101 Carbon Dioxide 20 L Anion Gap 16 BUN 17 Creatinine 0.9 Creat Clearance w eGFR > 60 Random Glucose 117 H Lactic Acid Calcium 8.5 Phosphorus 1.7 L Magnesium 1.8 Total Bilirubin 0.7 AST 19 D ALT 21 D Alkaline Phosphatase 65 Creatine Kinase 138 Troponin I 0.04 Total Protein 5.6 L Albumin 2.9 L TSH 0.64 02/19/17 08:05 RBC 3.64 MCV 95.2 MCHC 33.1 RDW 12.1 MPV 7.4 L Neutrophils % 87.3 H Lymphocytes % 5.6 L Monocytes % 7.0 Eosinophils % 0.0 Basophils % 0.1 - Medications Given in the ED: ED Medications Discontinued Medications Generic Name Dose Route Start Last Admin Trade Name Freq PRN Reason Stop Dose Admin Al Hydroxide/Mg Hydroxide 30 ml 02/19/17 09:43 02/19/17 09:50 Mylanta Suspension - PO 02/19/17 09:44 30 mg ONCE ONE Administration Diltiazem HCl 10 mg 02/19/17 07:58 02/19/17 08:04 Cardizem Injection - IVPUSH 02/19/17 07:59 10 mg ONCE ONE Administration Diltiazem HCl 20 mg 02/19/17 09:11 02/19/17 09:12 Cardizem Injection - IVPUSH 02/19/17 09:12 20 mg ONCE ONE Administration Diltiazem HCl 30 mg 02/19/17 09:21 02/19/17 09:49 Cardizem - PO 02/19/17 09:22 30 mg ONCE ONE Administration Diltiazem HCl 20 mg 02/19/17 07:55 02/19/17 08:30 Cardizem Injection - IVPUSH 02/19/17 07:56 20 mg ONCE ONE Administration Sodium Chloride 500 mls @ 500 mls/hr 02/19/17 09:16 02/19/17 09:35 Normal Saline - IV 02/19/17 10:15 500 mls/hr ASDIR STA Administration Morphine Sulfate 4 mg 02/19/17 09:25 02/19/17 09:34 Morphine Injection - IVPUSH 02/19/17 09:26 4 mg ONCE ONE Administration Ondansetron HCl 4 mg 02/19/17 09:43 02/19/17 09:50 Zofran Injection IVPB 02/19/17 09:44 4 mg ONCE ONE Administration Pantoprazole Sodium 40 mg 02/19/17 09:25 02/19/17 09:34 Protonix Iv IVPUSH 02/19/17 09:26 40 mg ONCE ONE Administration <Marisela López - Last Filed: 02/19/17 13:45> - LABORATORY CBC & Chemistry Diagram: 02/19/17 08:05 02/19/17 08:05 - ADDITIONAL ORDERS Additional order review: Laboratory Results 02/19/17 02/19/17 02/19/17 15:10 09:28 08:05 PT with INR INR PTT (Actin FS) D-Dimer 4054 H Sodium Potassium Chloride Carbon Dioxide Anion Gap BUN Creatinine Creat Clearance w eGFR Random Glucose Lactic Acid 1.2 Calcium Phosphorus Magnesium Total Bilirubin AST ALT Alkaline Phosphatase Creatine Kinase Troponin I Total Protein Albumin TSH Urine Color Straw Urine Appearance Clear Urine pH 5.0 Ur Specific [place] 1.025 Urine Protein Negative Urine Glucose (UA) Negative Urine Ketones Trace H Urine Blood 1+ H Urine Nitrite Negative Urine Bilirubin Negative Urine Urobilinogen Negative Ur Leukocyte Esterase Trace 02/19/17 02/19/17 02/19/17 08:05 08:05 08:05 PT with INR 10.50 INR 0.93 PTT (Actin FS) 26.4 L D-Dimer Sodium 137 Potassium 3.7 Chloride 101 Carbon Dioxide 20 L Anion Gap 16 BUN 17 Creatinine 0.9 Creat Clearance w eGFR > 60 Random Glucose 117 H Lactic Acid Calcium 8.5 Phosphorus 1.7 L Magnesium 1.8 Total Bilirubin 0.7 AST 19 D ALT 21 D Alkaline Phosphatase 65 Creatine Kinase 138 Troponin I 0.04 Total Protein 5.6 L Albumin 2.9 L TSH 0.66 D 0.64 Urine Color Urine Appearance Urine pH Ur Specific [place] Urine Protein Urine Glucose (UA) Urine Ketones Urine Blood Urine Nitrite Urine Bilirubin Urine Urobilinogen Ur Leukocyte Esterase 02/19/17 08:05 RBC 3.64 MCV 95.2 MCHC 33.1 RDW 12.1 MPV 7.4 L Neutrophils % 87.3 H Lymphocytes % 5.6 L Monocytes % 7.0 Eosinophils % 0.0 Basophils % 0.1 - Medications Given in the ED: ED Medications Discontinued Medications Generic Name Dose Route Start Last Admin Trade Name Freq PRN Reason Stop Dose Admin Al Hydroxide/Mg Hydroxide 30 ml 02/19/17 09:43 02/19/17 09:50 Mylanta Suspension - PO 02/19/17 09:44 30 mg ONCE ONE Administration Diltiazem HCl 10 mg 02/19/17 07:58 02/19/17 08:04 Cardizem Injection - IVPUSH 02/19/17 07:59 10 mg ONCE ONE Administration Diltiazem HCl 20 mg 02/19/17 09:11 02/19/17 09:12 Cardizem Injection - IVPUSH 02/19/17 09:12 20 mg ONCE ONE Administration Diltiazem HCl 30 mg 02/19/17 09:21 02/19/17 09:49 Cardizem - PO 02/19/17 09:22 30 mg ONCE ONE Administration Diltiazem HCl 20 mg 02/19/17 07:55 02/19/17 08:30 Cardizem Injection - IVPUSH 02/19/17 07:56 20 mg ONCE ONE Administration Sodium Chloride 500 mls @ 500 mls/hr 02/19/17 09:16 02/19/17 09:35 Normal Saline - IV 02/19/17 10:15 500 mls/hr ASDIR STA Administration Morphine Sulfate 4 mg 02/19/17 09:25 02/19/17 09:34 Morphine Injection - IVPUSH 02/19/17 09:26 4 mg ONCE ONE Administration Ondansetron HCl 4 mg 02/19/17 09:43 02/19/17 09:50 Zofran Injection IVPB 02/19/17 09:44 4 mg ONCE ONE Administration Pantoprazole Sodium 40 mg 02/19/17 09:25 02/19/17 09:34 Protonix Iv IVPUSH 02/19/17 09:26 40 mg ONCE ONE Administration <Darius Garcia - Last Filed: 02/19/17 15:27> Medical Decision Making - Medical Decision Making 02/19/17 11:40 Surgeon called. Mesenteric ischemia vs PE vs GERD vs surgical complications. Basic labs ordered CXR normal D-Dimer in the 4000's CTA chest and abdomen pending Called placed to Surgeon 02/19/17 13:39 CHEST CTA: Small left-sided and minimal right-sided pleural effusions. Bibasilar subpleural opacities probably representing atelectasis, less likely small infiltrates. Correlate clinically. Mild cardiomegaly. Moderate hiatal hernia. The herniated portion of the gastric fundus demonstrates nonspecific concentric wall thickening. When the patient's clinical condition permits additional evaluation utilizing endoscopy or an upper gastrointestinal series is suggested. Moderate to marked T11 vertebral body compression fracture with minimal bony retropulsion which is probably chronic, less likely subacute. Correlate clinically. ABD CTA No aortic aneurysm or dissection is identified. Nonspecific subcutaneous air/gas accumulation is seen along the abdomen and upper pelvis ventrally. A moderate to marked T11 vertebral body compression fracture is noted with minimal bony retropulsion. This finding is probably chronic, less likely subacute. Correlate clinically. A moderate hiatal hernia is noted with associated nonspecific concentric wall thickening. <Blayne Millan - Last Filed: 02/19/17 13:39> *DC/Admit/Observation/Transfer <Blayne Millan - Last Filed: 02/19/17 13:39> <Marisela López - Last Filed: 02/19/17 13:45> - Discharge Dispostion Admit: Yes <Darius Garcia - Last Filed: 02/19/17 15:27> Diagnosis at time of Disposition: Hiatal hernia Atrial fibrillation Qualifiers: Atrial fibrillation type: paroxysmal Qualified Code(s): I48.0 - Paroxysmal atrial fibrillation Chest pain Qualifiers: Chest pain type: unspecified Qualified Code(s): R07.9 - Chest pain, unspecified - Discharge Dispostion Condition at time of disposition: Stable - Referrals Referrals: Ariel Fernandes MD [Primary Care Provider] - - Patient Instructions - Post Discharge Activity
[2017-02-19 15:18] LABS: URINE APPEARANCE CLEAR; URINE BILIRUBIN NEGATIVE (NEGATIVE); URINE BLOOD 1+ (NEGATIVE); URINE COLOR STRAW; URINE GLUCOSE (UA) NEGATIVE (NEGATIVE); URINE KETONE TRACE (NEGATIVE); URINE LEUK ESTERASE TRACE (NEGATIVE); URINE NITRITE NEGATIVE (NEGATIVE); URINE PROTEIN NEGATIVE (NEGATIVE); URINE UROBILINOGEN NEGATIVE mg/dL (0.2-1.0)
--- NOTE | 2017-02-19 16:26 | CONSULT ---
Consult Consult Specialty:: general surgery Referred by:: Jose-ED Reason for Consultation:: postop abdominal pain s/p robotic hysterectomy and b/ l salpingectomy - History of Present Illness Chief Complaint: abdominal pain History of Present Illness: 81yo female PMH HTN, GERD on omprezle s/p robotic hysterectomy and bilateral salpingectomy on 02/16/2017 presented with complaints of burning chest/epigastric pain last night. She is accompanied by her son and they report that since discharge she has been having a lot of acid reflux symptoms and some abdominal pain as well. She has had no emesis but has felt nausea and weak. She denies fever or chills, has been eating sparingly, and has been passing flatus normally. She appeared very uncomfortable on her arrival the ED according the team assessing her but was comfortable on my arrival. She has a history of GERD is on monotherapy, but has been off of it since before surgery. She has not had a recent upper endoscopy. She was not aware of a hiatal hernia. She also reports that she has been experiencing relative urinary incontinence since discharge as well. She increased urinary frequency and does not always make it to the bathrooom. She denies any sob, palpitations. We were asked to assess her foregut symptoms after Ct scan showed a hiatal hernia. - History Source History Provided By: Patient, Medical Record Limitations to Obtaining History: No Limitations - Past Medical History Cardio/Vascular: Yes: HTN Gastrointestinal: Yes: GERD - Past Surgical History Past Surgical History: Yes: Hysterectomy ([address] Shell ) - Alcohol/Substance Use Hx Alcohol Use: Yes (occas) - Smoking History Smoking history: Never smoked Have you smoked in the past 12 months: No - Social History Place of : [facility] History of Recent Travel: No Home Medications - Allergies Allergies/Adverse Reactions: Allergies Allergy/AdvReac Type Severity Reaction Status Date / Time No Known Allergies Allergy Verified 02/19/17 07:47 - Home Medications Home Medications: Ambulatory Orders Metoprolol Tartrate [Lopressor -] 100 mg PO DAILY 04/29/14 Amlodipine Besylate/Benazepril [Lotrel 5-40 mg Capsule] 1 each PO DAILY Review of Systems - Review of Systems Constitutional: reports: Weakness. denies: Chills, Fever Eyes: denies: Blurred Vision, Recent Change in Vision HENT: reports: Difficult Swallowing, Throat Pain Neck: denies: Stiffness, Swollen Glands, Tenderness Cardiovascular: reports: Chest Pain. denies: Palpitations Respiratory: denies: SOB Gastrointestinal: reports: Abdominal Pain, Indigestion, Nausea. denies: Vomiting Genitourinary: reports: Frequency, Urgency Musculoskeletal: reports: Back Pain (chronic back pain wears a brace) Integumentary: denies: Lesions, Rash Neurological: denies: Change in LOC, Syncope Endocrine: denies: Unexplained Weight Gain, Unexplained Weight Loss Hematology/Lymphatic: denies: Easily Bruised, Excessive Bleeding Psychiatric: denies: Anxiety, Depression Physical Exam Vital Signs: Vital Signs Temperature 98.4 F 02/19/17 07:50 Pulse Rate 81 02/19/17 14:59 Respiratory Rate 16 02/19/17 14:59 Blood Pressure 135/59 02/19/17 14:59 O2 Sat by Pulse Oximetry (%) 97 02/19/17 14:59 Vital Signs Period Temp Pulse Resp BP Sys/Irizarry Pulse Ox Last 24 Hr 98.4 F 75-170 16-16 119-170/51-100 91-100 Constitutional: Yes: Well Nourished, Calm. No: No Distress Eyes: Yes: Conjunctiva Clear, EOM Intact HENT: Yes: Atraumatic, Normocephalic Neck: Yes: Supple, Trachea Midline, Decreased ROM Cardiovascular: Yes: Regular Rate and Rhythm, S1, S2 Respiratory: Yes: Regular, CTA Bilaterally. No: Cough Gastrointestinal: Yes: Normal Bowel Sounds, Soft, Other (periumbilical spongy crepetus in the skin. Dermabond intact, small ecchyosis at the site). No: Ascites, Tenderness, Tenderness, Epigastrium, Tenderness, Rebound, Vomiting ...Rectal Exam: Yes: Sphincter Tone Normal. No: Induration, Mass Renal/: Yes: Other (suprapubic fullness). No: CVA Tenderness - Left, CVA Tenderness - Right Musculoskeletal: Yes: Back Pain (thoracic level R>L) Extremities: No: Calf Tenderness, Cool, Cyanosis Edema: No Peripheral Pulses WNL: Yes Wound/Incision: Yes: Well Approximated, Open to air, Other (subcutaneous emphysema/ crepitus). No: Draining, Reddened Neurological: Yes: Alert, Oriented Psychiatric: Yes: Alert, Oriented Labs: CBC, BMP 02/19/17 08:05 02/19/17 08:05 Imaging - Results Cat Scan: Report Reviewed, Image Reviewed Problem List - Problems (1) Hiatal hernia Assessment/Plan: 81 yo HTN GERD with reflux like symptoms, urinary incontinence, and abdominal pain with subcutaneous emphysema POD3 s/p Robotic assisted hysterectomy and bilateral salpingectomy. CT shows an inflamed hiatal hernia with wall thickening with SQ air in abdominal wall tissues and a very large bladder. Not an acute abdomen on exam. A. GERD with hiatal hernia, now symptomatic after surgical insufflation B. Abdominal wall emphysema and abdominal pain. expected post operatively C. Urinary incontinence, expected post operatively Start diet as tolerated IVF hydration empiric IV antibiotics Restart a PPI, HOB to 30 degrees when laying down GI evaluation for upper endoscopy Adequate analgesia Insert han for comfort and accurate hydration monitoring, send UA and UCX evaluation a be useful given history of prolapse and given expected pelvic inflammation Follow up by Dr. Meg Shell Trend labs for AM We will follow for serial exams Thank you for the opportunity to participate in the care of this patient. Code(s): K44.9 - DIAPHRAGMATIC HERNIA WITHOUT OBSTRUCTION OR GANGRENE (2) Overflow incontinence of urine Code(s): N39.490 - OVERFLOW INCONTINENCE (3) Degenerative arthritis of thoracic spine Code(s): M47.814 - SPONDYLOSIS W/O MYELOPATHY OR RADICULOPATHY, THORACIC REGION (4) Atrial fibrillation Code(s): I48.91 - UNSPECIFIED ATRIAL FIBRILLATION Qualifiers: Atrial fibrillation type: paroxysmal Qualified Code(s): I48.0 - Paroxysmal atrial fibrillation (5) Chest pain Code(s): R07.9 - CHEST PAIN, UNSPECIFIED Qualifiers: Chest pain type: unspecified Qualified Code(s): R07.9 - Chest pain, unspecified
[2017-02-19] MEDS ORDERED: morphine CARPU-JECT 10 MG/1 ML DISP.SYRIN IVPUSH PRN ×2 (16:47→17:09)
--- NOTE | 2017-02-19 16:48 | CON.CARD ---
Cardiology Consult (text) - Consultation Consultation Note: CC: new onset afib 81 yo with h/o HTN, GERD, recently off PPI and s/p robotic hysterectomy and bilateral salpingectomy on 02/16/2017 who p/w burning chest/epigastric pain and noted to be in afib with rvr. Just had above surgery 02/16. pain well controlled at home no discomfort. last night developed recurrence her typical acid reflux symptoms but more severe. States she had recently been off her ppi. Denies palps, sob, dizziness, cp, orthopnea, pnd, le edema, claudication. At baseline, walks up and downstairs regularly in home without limitation. Walks with cane, no falls. + n/v, weakness. one episode of diarrhea last night. + urinary frequency since surgery. no dysuria. in er given multiple IV dilt pushes, ivf and po dilt with spontaneous conversion to sr. - Past Medical History Cardio/Vascular: Yes: HTN Gastrointestinal: Yes: GERD - Past Surgical History Past Surgical History: Yes: Hysterectomy ([address] Shell ) - Alcohol/Substance Use Hx Alcohol Use: Yes glass of wine with dinner - Smoking History Smoking history: Never smoked family hx: no h/o cad ros: per hpi Ambulatory Orders Metoprolol Tartrate [Lopressor -] 100 mg PO DAILY 04/29/14 Amlodipine Besylate/Benazepril [Lotrel 5-40 mg Capsule] 1 each PO DAILY Vital Signs - 24 hr 02/19/17 02/19/17 02/19/17 07:50 08:02 08:25 Temperature 98.4 F Pulse Rate 170 H Pulse Rate [ 160 H Apical] Respiratory 16 16 Rate Blood Pressure 170/100 Blood Pressure 119/74 [Left Arm] O2 Sat by Pulse 100 91 L 95 Oximetry (%) 02/19/17 02/19/17 02/19/17 08:56 09:50 11:36 Temperature Pulse Rate Pulse Rate [ 134 H 92 H 75 Apical] Respiratory 16 16 16 Rate Blood Pressure Blood Pressure 125/58 119/51 121/55 [Left Arm] O2 Sat by Pulse 95 95 95 Oximetry (%) 02/19/17 14:59 Temperature Pulse Rate Pulse Rate [ 81 Apical] Respiratory 16 Rate Blood Pressure Blood Pressure 135/59 [Left Arm] O2 Sat by Pulse 97 Oximetry (%) Intake & Output 01/10/18 01/11/18 01/12/18 01/13/18 07:59 07:59 07:59 07:59 Output Total 600 Balance -600 Weight 130 lb nad, calm jvd flat, neck supple ctab, nl effort rrr nl s1, s2 no mrg + bs soft nt nd, no hsm ext without e/c/c + dp/pt aaox3 no jaundice, diaphoresis no carotid bruits CBC, BMP 02/19/17 08:05 02/19/17 08:05 Laboratory Tests 02/19/17 02/19/17 08:05 09:28 Lactic Acid 1.2 Magnesium 1.8 Total Bilirubin 0.7 AST 19 D ALT 21 D Alkaline Phosphatase 65 Creatine Kinase 138 Troponin I 0.04 Albumin 2.9 L TSH 0.64 ekg: afib with rvr 166 bpm. rbbb. lateral std repeat ekg: sr, inferolateral twi. tele: afib 130's --> conversion to sr. ct c/a/p: images and report reviewed. 81 yo with h/o HTN, GERD, recently off PPI and s/p robotic hysterectomy and bilateral salpingectomy on 02/16/2017 who p/w burning chest/epigastric pain and noted to be in afib with rvr. new onset afib - s/p surgery 02/16. However given patient is asx even when in rapid afib and given her calculated risk of stroke would not treat as isolated/post-op afib but instead treat as pafib and initiate anticoagulation. discussed risk/ benefit with patient and family and they are amenable. Discussed with ER and they have confirmed that it is ok per surgery to initiate AC. will start eliquis 2.5 bid (given weight and age). - resume home metoprolol (change to 50 bid), uptitrate if possible - would benefit from echo (can be done as outpatient) - lyte repletion prn. - small bilateral effusions on ct scan, limit IVF. htn - monitor with rate control meds. also on lotrel at home. add back once rate control meds are optimized. Ab ekg - ST-t wave changes during RVR and residual TWI. No priors to compare to. Can consider non-urgent ischemic evaluation. abdominal pain s/p surgery - surgery following.
--- NOTE | 2017-02-19 17:10 | HP ---
Admitting History and Physical - Primary Care Physician PCP: Ariel Fernandes - Admission History of Present Illness: Pt 81y F hx of htn s/p hysterectomy 3 days ago presents to er with complaint of burning chest/epigastric pain since last night. She complains of increased urinary frequency since last night with the pain getting worse. She denies any sob, numbness.tingling/weakness, vision changes, lightheadedness , fever/chills. per EMS, she was noted to be in the 180s-190s HR, SVT vs afib - was given adenosine 6 followed by 12 that failed to break the rhthm - no p waves were seen - pt was started on diltaizem by EMS with improvement of her rate. on arrival, her HR was 130s and irregularly irregular. she was given another 30mg of diltiazem here with improvement to 90s but increased again to 130s. Given another 20mg of dilitaizem. In er pt in afib- given - cardizem - converted to sinus ct scan - showed hiatal hernia/ gas surgical consult requested pt given morphine in er pt seen in er by me - discussed with er physician and surgeon much better at time of my exam in fact denies pain now chart reviewed. History Source: Patient Limitations to Obtaining History: No Limitations - Past Medical History Cardiovascular: Yes: HTN - Past Surgical History Past Surgical History: Yes: Hysterectomy ([address] Shell ) - Smoking History Smoking history: Never smoked Have you smoked in the past 12 months: No - Alcohol/Substance Use Hx Alcohol Use: Yes (occas) Home Medications - Allergies Allergies/Adverse Reactions: Allergies Allergy/AdvReac Type Severity Reaction Status Date / Time No Known Allergies Allergy Verified 02/19/17 07:47 - Home Medications Home Medications: Ambulatory Orders Metoprolol Tartrate [Lopressor -] 100 mg PO DAILY 04/29/14 Amlodipine Besylate/Benazepril [Lotrel 5-40 mg Capsule] 1 each PO DAILY Review of Systems - Review of Systems Eyes: reports: No Symptoms Neck: reports: No Symptoms Cardiovascular: reports: Palpitations, Shortness of Breath Respiratory: reports: No Symptoms Gastrointestinal: reports: Abdominal Pain Genitourinary: reports: Frequency Neurological: reports: No Symptoms Psychiatric: reports: No Symptoms Pain Intensity: 10 Physical Examination Vital Signs: Vital Signs Temperature 98.4 F 02/19/17 07:50 Pulse Rate 81 02/19/17 14:59 Respiratory Rate 16 02/19/17 14:59 Blood Pressure 135/59 02/19/17 14:59 O2 Sat by Pulse Oximetry (%) 97 02/19/17 14:59 Constitutional: Yes: Calm Eyes: Yes: Conjunctiva Clear Neck: Yes: Supple Cardiovascular: Yes: Regular Rate and Rhythm (converted to sinus). No: Pulse Irregular Respiratory: Yes: Diminished (at bases) Gastrointestinal: Yes: Soft Edema: No Neurological: Yes: Alert Psychiatric: Yes: Alert Labs: CBC, BMP 02/19/17 08:05 02/19/17 08:05 Imaging - Results Cat Scan: Report Reviewed EKG: Report Reviewed Problem List - Problems (2) Hypertension Code(s): I10 - ESSENTIAL (PRIMARY) HYPERTENSION (3) Atrial fibrillation Code(s): I48.91 - UNSPECIFIED ATRIAL FIBRILLATION Qualifiers: Atrial fibrillation type: paroxysmal Qualified Code(s): I48.0 - Paroxysmal atrial fibrillation (4) Hiatal hernia Code(s): K44.9 - DIAPHRAGMATIC HERNIA WITHOUT OBSTRUCTION OR GANGRENE Assessment/Plan New onset afib-- converted to sinus Abdominal pain- resolved recent robotic nurse gynecology surgery Hiatal hernia Monitor on tele pain control keep npo for now iv fluids i/v protonix cardiolgy to follow- nurse gynecology to follow will follow discussed with nursing staff discussed with er physician / surgeon also Will discuss with pts private pmd also time spend 40 min in examining/ documenting and coordating care.
[2017-02-19] MEDS: PANTOPRAZOLE SODIUM 40 MG VIAL IVPUSH SCH (17:44)
[2017-02-19] MEDS: D5-1/2NS+20 MEQ KCL - 20 MEQ/1,000 ML INFUS.BAG IV SCH (17:53)
[2017-02-19] MEDS: APIXABAN 2.5 MG TABLET PO SCH (21:34)
[2017-02-19] MEDS: METOPROLOL SUCCINATE 50 MG TAB.SR.24H (FP) PO SCH (21:34)
[2017-02-20] MEDS: D5-1/2NS+20 MEQ KCL - 20 MEQ/1,000 ML INFUS.BAG IV SCH (02:24)
[2017-02-20 08:36] LABS: INR 1.09 (0.82-1.09); PROTHROMBIN TIME (PATIENT) 12.3 SEC (9.98-11.88)
[2017-02-20 08:43] LABS: CHLORIDE 105 mmol/L (98-107); POTASSIUM 4.3 mmol/L (3.5-5.1); SODIUM 137 mmol/L (136-145)
[2017-02-20 08:47] LABS: BASO % 0.3 % (0-2.0); EOS % 0.6 % (0-4.5); HEMATOCRIT 31.8 % (32.4-45.2); HEMOGLOBIN 10.5 GM/dL (10.7-15.3); LYMPH % 9.4 % (8-40); MCH 31.6 pg (25.7-33.7); MCHC 32.9 g/dl (32.0-36.0); MEAN CELL VOLUME 96.1 fl (80-96); MEAN PLT VOLUME 7.6 fl (7.5-11.1); MONO % 8.2 % (3.8-10.2); NEUT % 81.5 % (42.8-82.8); PLATELET COUNT 284 K/MM3 (134-434); RBC 3.31 M/mm3 (3.60-5.2); RDW 12.4 % (11.6-15.6); WHITE BLOOD COUNT 11.6 K/mm3 (4.0-10.0)
[2017-02-20 09:12] LABS: ALBUMIN 2.3 g/dl (3.4-5.0); ALK PHOS 58 U/L (45-117); ANION GAP 6 (8-16); BILIRUBIN,TOTAL 0.6 mg/dL (0.2-1.0); BLOOD UREA NITROGEN 6 mg/dL (7-18); CALCIUM 7.4 mg/dL (8.5-10.1); CO2 26 mmol/L (21-32); CREATININE 0.8 mg/dL (0.55-1.02); GLUCOSE,RANDOM 134 mg/dL (74-106); SGOT/AST 10 U/L (15-37); SGPT/ALT 17 U/L (12-78); TOT PROT 4.9 g/dl (6.4-8.2)
[2017-02-20] MEDS: PANTOPRAZOLE SODIUM 40 MG VIAL IVPUSH SCH (10:01)
[2017-02-20] MEDS: METOPROLOL SUCCINATE 50 MG TAB.SR.24H (FP) PO SCH ×2 (10:01→22:05)
[2017-02-20] MEDS: APIXABAN 2.5 MG TABLET PO SCH ×2 (10:01→22:05)
--- NOTE | 2017-02-20 11:09 | PN ---
Progress Note, Physician Chief Complaint: abdominal pain/burning History of Present Illness: 81yo female PMH HTN, GERD on omprezle s/p robotic hysterectomy and bilateral salpingectomy on 02/16/2017 presented with complaints of burning chest/epigastric pain last night. She is accompanied by her son and they report that since discharge she has been having a lot of acid reflux symptoms and some abdominal pain as well. Reflux symptoms have abated per patient she is enjoying lunch upon my arrival. no acute events overnight. - Current Medication List Current Medications: Active Medications Apixaban (Eliquis -) 2.5 mg PO BID [facility] Last Admin: 02/20/17 10:01 Dose: 2.5 mg Potassium Chloride/Dextrose/Sod Cl (D5-1/2ns+20 Meq Kcl -) 20 meq in 1,000 mls @ 125 mls/hr IV ASDIR [facility] Last Admin: 02/20/17 02:24 Dose: 125 mls/hr Metoprolol Succinate (Toprol Xl -) 50 mg PO BID [facility] Last Admin: 02/20/17 10:01 Dose: 50 mg Morphine Sulfate (Morphine Injection -) 2 mg IVPUSH Q4H PRN PRN Reason: PAIN LEVEL 6-10 Last Admin: 02/20/17 06:48 Dose: 2 mg Pantoprazole Sodium (Protonix Iv) 40 mg IVPUSH DAILY [facility] Last Admin: 02/20/17 10:01 Dose: 40 mg - Objective Vital Signs: Vital Signs Temperature 983 F H 02/20/17 10:21 Pulse Rate 77 02/20/17 10:21 Respiratory Rate 18 02/20/17 10:21 Blood Pressure 131/66 02/20/17 10:21 O2 Sat by Pulse Oximetry (%) 99 02/20/17 08:17 Labs: CBC, BMP 02/20/17 07:09 02/20/17 07:09 INR, PTT INR 1.09 (0.82-1.09) 02/20/17 07:09 Problem List - Problems (1) Hiatal hernia Assessment/Plan: 81 yo HTN GERD with reflux like symptoms, urinary incontinence, and abdominal pain with subcutaneous emphysema POD3 s/p Robotic assisted hysterectomy and bilateral salpingectomy. CT shows an inflamed hiatal hernia with wall thickening with SQ air in abdominal wall tissues and a very large bladder. Not an acute abdomen on exam. A. GERD with hiatal hernia, now symptomatic after surgical insufflation B. Abdominal wall emphysema and abdominal pain. expected post operatively C. Urinary incontinence, expected post operatively Start diet as tolerated empiric IV antibiotics Restart a PPI oral GI evaluation for upper endoscopy Adequate analgesia D/C han in AM evaluation a be useful given history of prolapse and given expected pelvic inflammation Follow up by Dr. Meg Shell Trend labs for AM We will follow for serial exams Code(s): K44.9 - DIAPHRAGMATIC HERNIA WITHOUT OBSTRUCTION OR GANGRENE (2) Overflow incontinence of urine Code(s): N39.490 - OVERFLOW INCONTINENCE (3) Degenerative arthritis of thoracic spine Code(s): M47.814 - SPONDYLOSIS W/O MYELOPATHY OR RADICULOPATHY, THORACIC REGION (4) Atrial fibrillation Code(s): I48.91 - UNSPECIFIED ATRIAL FIBRILLATION Qualifiers: Atrial fibrillation type: paroxysmal Qualified Code(s): I48.0 - Paroxysmal atrial fibrillation (5) Chest pain Code(s): R07.9 - CHEST PAIN, UNSPECIFIED Qualifiers: Chest pain type: unspecified Qualified Code(s): R07.9 - Chest pain, unspecified
--- NOTE | 2017-02-20 12:18 | PN ---
Progress Note, Physician Chief Complaint: cp, afib History of Present Illness: says her burning cp/epig pain is not new, same as prior GERD sx's which resolved on daily omeprazole. but stopped this med for about 1 week around time of recent surgery. no more cp, no abd pain denies sob or diaph (incl at home) ditto for palpitations - Current Medication List Current Medications: Active Medications Apixaban (Eliquis -) 2.5 mg PO BID [facility] Last Admin: 02/20/17 10:01 Dose: 2.5 mg Potassium Chloride/Dextrose/Sod Cl (D5-1/2ns+20 Meq Kcl -) 20 meq in 1,000 mls @ 125 mls/hr IV ASDIR [facility] Last Admin: 02/20/17 02:24 Dose: 125 mls/hr Metoprolol Succinate (Toprol Xl -) 50 mg PO BID [facility] Last Admin: 02/20/17 10:01 Dose: 50 mg Morphine Sulfate (Morphine Injection -) 2 mg IVPUSH Q4H PRN PRN Reason: PAIN LEVEL 6-10 Last Admin: 02/20/17 06:48 Dose: 2 mg Pantoprazole Sodium (Protonix Iv) 40 mg IVPUSH DAILY [facility] Last Admin: 02/20/17 10:01 Dose: 40 mg - Objective Vital Signs: Vital Signs Temperature 983 F H 02/20/17 10:21 Pulse Rate 77 02/20/17 10:21 Respiratory Rate 18 02/20/17 10:21 Blood Pressure 131/66 02/20/17 10:21 O2 Sat by Pulse Oximetry (%) 99 02/20/17 08:17 Constitutional: Yes: Well Nourished, No Distress, Calm Cardiovascular: Yes: Regular Rate and Rhythm, S1, S2. No: JVD, Gallop, Murmur Respiratory: Yes: Regular, CTA Bilaterally. No: Accessory Muscle Use, Rales, Wheezes Extremities: No: Cold Edema: No Neurological: Yes: Alert, Oriented Psychiatric: No: Agitated Labs: CBC, BMP 02/20/17 07:09 02/20/17 07:09 INR, PTT INR 1.09 (0.82-1.09) 02/20/17 07:09 - ....Imaging EKG: Other (tele: NSR) Assessment/Plan ekg: afib with rvr 166 bpm. rbbb with assctd [address]-T anteroseptal leads. lateral std nonspecific for ischemia repeat ekg: sr, NSST-T ct c/a/p: images and report reviewed. 81 yo with h/o HTN, GERD, recently off PPI and s/p robotic hysterectomy and bilateral salpingectomy on 02/16/2017 who p/w burning chest/epigastric pain and noted to be in afib with rvr. new onset afib: - s/p surgery 02/16. cannot confidently attribute afib 3d later to abdominal surgery and/or anesthesia, i.e a "reversible" etiology of fib. - CHADS VASC = 4, hence AC indicated. dr gordillo discussed risk/benefit with patient and family and they agree with plan. - per d/w surgery (dr cano), no contraindication for full-dose AC - pt >80 yrs, old, wt <60 kg--eliquis 2.5 bid started. - home lopressor 100 qd changed to toprol 50 bid here. - since was rapid despite high dose BB at home (though short-acting formulation) , will add diltiazem 30 TID here. - no palpitations or other new sx's (only her GERD) at home, despite very rapid HR to 160-170. advised pt of risk for tachy-CMP and/or CHF in future, and importance to f/u with us for monitoring. - monitor tele for at least 24 hrs more - would benefit from echo (can be done as outpatient, will not change mgmt accutely if remains clinically stable) - small bilateral effusions on ct scan, ? sec to s/p abd surgery. limit IVF. defer lasix at present unless sob sx's. - no signs of ACS cp/epigastric pain: - burning quality, consistent with her prior known GERD. sx's well controlled with PPI in past, but recurred off med. - nonspecific ST-Ts on ekg, not ischemic in appearance. trop neg x 2. - PPI started here - observe sx's. - defer stress test unless sx's of myocardial ischemia develop (or atyp cp persists on PPI) htn - bp controlled - continue metoprolol. - also on lotrel at home, diltiazem added here for AF rate control - consider add back PATTI later depending on bp, once AVN blockers are optimized abdominal pain s/p surgery - surgery following.
[2017-02-20] MEDS ORDERED: ACETAMINOPHEN 325 MG TABLET (FP) PO PRN (12:52)
[2017-02-20] MEDS ORDERED: PANTOPRAZOLE 40 MG TABLET (FP) PO ONE (13:01)
--- NOTE | 2017-02-20 14:04 | CON.OBG ---
Consult Consult Specialty:: Gynecology Referred by:: Medicine Reason for Consultation:: D # 4 Post-op readmission - History of Present Illness Chief Complaint: Currently feels much improved. reports no abdominal or chest pain, no SOB, + flatus, possibly + BM. She has han catheter. would like to get out of bed History of Present Illness: 81 yo s/p Robotic TH/BSO 02/16/17 she stopped taking her GERD meds 1 week prior to surgery, mistakenly She presented to ER 02/19/17 with chest pain and was found in Afib by EMT Rhythm was reversed to NSR, she was started on anticoagulation Chest pain now controlled with pump inhibitors She was r/out for PE or acute cardiac event - History Source History Provided By: Patient Limitations to Obtaining History: No Limitations - Past Medical History Cardio/Vascular: Yes: HTN Gastrointestinal: Yes: GERD - Past Surgical History Past Surgical History: Yes: Hysterectomy ([address] Shell ) - Alcohol/Substance Use Hx Alcohol Use: Yes (occas) - Smoking History Smoking history: Never smoked Have you smoked in the past 12 months: No - Social History Usual Living Arrangement: With Child (son) History of Recent Travel: No Home Medications - Allergies Allergies/Adverse Reactions: Allergies Allergy/AdvReac Type Severity Reaction Status Date / Time No Known Allergies Allergy Verified 02/19/17 07:47 - Home Medications Home Medications: Ambulatory Orders Metoprolol Tartrate [Lopressor -] 100 mg PO DAILY 04/29/14 Amlodipine Besylate/Benazepril [Lotrel 5-40 mg Capsule] 1 each PO DAILY Review of Systems - Review of Systems Constitutional: reports: No Symptoms Eyes: reports: No Symptoms HENT: reports: No Symptoms Neck: reports: No Symptoms Cardiovascular: reports: No Symptoms Respiratory: reports: No Symptoms Gastrointestinal: reports: No Symptoms Genitourinary: reports: No Symptoms (han to gravity) Musculoskeletal: reports: No Symptoms Integumentary: reports: No Symptoms Neurological: reports: No Symptoms Pain Intensity: 0 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 Vital Signs: Vital Signs Temperature 983 F H 02/20/17 10:21 Pulse Rate 77 02/20/17 10:21 Respiratory Rate 18 02/20/17 10:21 Blood Pressure 131/66 02/20/17 10:21 O2 Sat by Pulse Oximetry (%) 99 02/20/17 08:17 Constitutional: Yes: Well Nourished Neck: Yes: Supple, Trachea Midline Cardiovascular: Yes: Regular Rate and Rhythm Respiratory: Yes: CTA Bilaterally Gastrointestinal: Yes: Normal Bowel Sounds, Soft (well healing puncture incisions) External Genitalia: Yes: Normal Vaginal Exam: Yes: Normal (no vaginal bleeding, intact vagina, no cuff tenderness) Cervix: Yes: Other (surgically abscent) Uterus: Yes: Normal, Other (surgically abscent) Extremities: Yes: WNL Edema: No Integumentary: Yes: WNL Wound/Incision: Yes: Clean/Dry, Well Approximated Neurological: Yes: WNL, Alert, Oriented ...Motor Strength: WNL Psychiatric: Yes: WNL Labs: CBC, BMP 02/20/17 07:09 02/20/17 07:09 Assessment/Plan 81yo POD#4 s/p Robotic Hysterectomy/BSO now stable, pain well controlled, proper post op recovery course no s/s of infection 1. Afib - now in SR, considered to be paroxysmal, cont. anticoagulation, fall prevention 2. Diaphragmatic hernia/GERD - continue PPIs, now discomfort well controlled 3. Han placed in ER, according to patient, she could not control her bladder when in pain. She has a history of urinary retention postoperatively Voiding trial tomorrow, if fails consider sending home with leg bag and Urology consult She currently has no BAND SAW OPERATOR or surgery related concerns or problems She has appropriate follow up arranged with Dr. Goodman and nc - [phone]
--- NOTE | 2017-02-20 17:13 | EKG ---
Test Reason : Blood Pressure : / mmHG Vent. Rate : 071 BPM Atrial Rate : 071 BPM P-R Int : 160 ms QRS Dur : 124 ms QT Int : 394 ms P-R-T Axes : 037 029 017 degrees QTc Int : 428 ms NORMAL SINUS RHYTHM RIGHT BUNDLE BRANCH BLOCK T WAVE ABNORMALITY, CONSIDER LATERAL ISCHEMIA ABNORMAL ECG WHEN COMPARED WITH ECG OF 19-FEB-2017 08:03, SINUS RHYTHM HAS REPLACED ATRIAL FIBRILLATION ST NO LONGER DEPRESSED IN ANTEROLATERAL LEADS T WAVE INVERSION LESS EVIDENT IN ANTERIOR LEADS T WAVE INVERSION NOW EVIDENT IN LATERAL LEADS Confirmed by YVES SOL MD ([id number]) on 02/20/2017 5:13:36 PM Referred By: Confirmed By:YVES SOL MD
--- NOTE | 2017-02-20 17:18 | EKG ---
Test Reason : Blood Pressure : / mmHG Vent. Rate : 099 BPM Atrial Rate : 144 BPM P-R Int : 000 ms QRS Dur : 124 ms QT Int : 346 ms P-R-T Axes : 000 026 036 degrees QTc Int : 444 ms ATRIAL FIBRILLATION RIGHT BUNDLE BRANCH BLOCK NONSPECIFIC ST ABNORMALITY ABNORMAL ECG WHEN COMPARED WITH ECG OF 19-FEB-2017 07:56, VENT. RATE HAS DECREASED BY 67 BPM Confirmed by YVES SOL MD ([id number]) on 02/20/2017 5:17:40 PM Referred By: Confirmed By:YVES SOL MD
--- NOTE | 2017-02-20 17:18 | EKG ---
Test Reason : Blood Pressure : / mmHG Vent. Rate : 166 BPM Atrial Rate : 159 BPM P-R Int : 000 ms QRS Dur : 118 ms QT Int : 318 ms P-R-T Axes : 000 055 018 degrees QTc Int : 528 ms ATRIAL FIBRILLATION WITH RAPID VENTRICULAR RESPONSE RIGHT BUNDLE BRANCH BLOCK ABNORMAL ECG WHEN COMPARED WITH ECG OF 22-MAR-2008 11:26, ATRIAL FIBRILLATION HAS REPLACED SINUS RHYTHM VENT. RATE HAS INCREASED BY [address] NOW DEPRESSED IN INFERIOR LEADS ST NOW DEPRESSED IN ANTEROLATERAL LEADS Confirmed by YVES SOL MD ([id number]) on 02/20/2017 5:17:54 PM Referred By: Confirmed By:YVES SOL MD
[2017-02-20] MEDS: dilTIAZem HCL 30 MG TABLET (FP) PO SCH ×2 (17:27→22:05)
[2017-02-20] MEDS: ONDANSETRON 4 MG TABLET PO PRN (20:05)
[2017-02-21] MEDS: dilTIAZem HCL 30 MG TABLET (FP) PO SCH ×3 (05:49→21:24)
--- NOTE | 2017-02-21 07:27 | PN ---
Progress Note (short form) - Note Progress Note: late note entry pt was seen in tele 02/20/17 comfortable anxious pain ok all f/u noted case was discussed with dice spotter surgeon also vitals -stable Labs reviewed Meds reviewed Physical comfortable lungs- clear cvs- s1, s2 rrr abd - soft ext- no edema neuro- aox3 a/p better not acute abdomen continue present care discussed with nursing staff also Problem List - Problems (2) Hypertension Code(s): I10 - ESSENTIAL (PRIMARY) HYPERTENSION (3) Atrial fibrillation Code(s): I48.91 - UNSPECIFIED ATRIAL FIBRILLATION Qualifiers: Atrial fibrillation type: paroxysmal Qualified Code(s): I48.0 - Paroxysmal atrial fibrillation (4) Hiatal hernia Code(s): K44.9 - DIAPHRAGMATIC HERNIA WITHOUT OBSTRUCTION OR GANGRENE
[2017-02-21 07:30] LABS: BASO % 0.5 % (0-2.0); EOS % 1.1 % (0-4.5); HEMATOCRIT 31.4 % (32.4-45.2); HEMOGLOBIN 10.5 GM/dL (10.7-15.3); LYMPH % 16.9 % (8-40); MCH 31.9 pg (25.7-33.7); MCHC 33.5 g/dl (32.0-36.0); MEAN CELL VOLUME 95.2 fl (80-96); MEAN PLT VOLUME 7.5 fl (7.5-11.1); MONO % 7.8 % (3.8-10.2); NEUT % 73.7 % (42.8-82.8); PLATELET COUNT 299 K/MM3 (134-434); RDW 12.3 % (11.6-15.6); WHITE BLOOD COUNT 10.4 K/mm3 (4.0-10.0)
[2017-02-21 07:58] LABS: ALBUMIN 2.4 g/dl (3.4-5.0); ANION GAP 6 (8-16); BLOOD UREA NITROGEN 8 mg/dL (7-18); CALCIUM 7.8 mg/dL (8.5-10.1); CHLORIDE 102 mmol/L (98-107); CO2 28 mmol/L (21-32); GLUCOSE,RANDOM 100 mg/dL (74-106); POTASSIUM 4.4 mmol/L (3.5-5.1); SODIUM 136 mmol/L (136-145)
[2017-02-21 08:02] LABS: ALK PHOS 57 U/L (45-117); BILIRUBIN,TOTAL 0.5 mg/dL (0.2-1.0); CREATININE 0.8 mg/dL (0.55-1.02); SGOT/AST 13 U/L (15-37); SGPT/ALT 20 U/L (12-78); TOT PROT 5.1 g/dl (6.4-8.2)
--- NOTE | 2017-02-21 09:01 | PN ---
Progress Note, Physician Chief Complaint: cp, afib History of Present Illness: no more cp/abd pain no palpit, sob, syncope - Current Medication List Current Medications: Active Medications Acetaminophen (Tylenol -) 650 mg PO Q6H PRN PRN Reason: PAIN LEVEL 1-5 Apixaban (Eliquis -) 2.5 mg PO BID [facility] Last Admin: 02/20/17 22:05 Dose: 2.5 mg Diltiazem HCl (Cardizem -) 30 mg PO TID [facility] Last Admin: 02/21/17 05:49 Dose: 30 mg Metoprolol Succinate (Toprol Xl -) 50 mg PO BID [facility] Last Admin: 02/20/17 22:05 Dose: 50 mg Morphine Sulfate (Morphine Injection -) 2 mg IVPUSH Q4H PRN PRN Reason: PAIN LEVEL 6-10 Ondansetron HCl (Zofran -) 4 mg PO Q8H PRN PRN Reason: NAUSEA AND/OR VOMITING Last Admin: 02/20/17 20:05 Dose: 4 mg Pantoprazole Sodium (Protonix -) 40 mg PO DAILY [facility] - Objective Vital Signs: Vital Signs Temperature 98.2 F 02/21/17 08:12 Pulse Rate 76 02/21/17 08:12 Respiratory Rate 20 02/21/17 08:12 Blood Pressure 134/59 02/21/17 08:12 O2 Sat by Pulse Oximetry (%) 96 02/21/17 08:12 Constitutional: Yes: Well Nourished, No Distress, Calm Cardiovascular: Yes: Regular Rate and Rhythm, S1, S2. No: Gallop, Murmur Respiratory: Yes: Regular, CTA Bilaterally. No: Accessory Muscle Use, Rales, Wheezes Extremities: No: Cold Edema: No Neurological: Yes: Alert, Oriented Psychiatric: No: Agitated Labs: CBC, BMP 02/21/17 05:05 02/21/17 05:05 INR, PTT INR 1.09 (0.82-1.09) 02/20/17 07:09 - ....Imaging EKG: Other (tele: NSR) Assessment/Plan ekg: afib with rvr 166 bpm. rbbb with assctd ST-T anteroseptal leads. lateral std nonspecific for ischemia repeat ekg: sr, NSST-T ct c/a/p: images and report reviewed. 81 yo with h/o HTN, GERD, recently off PPI and s/p robotic hysterectomy and bilateral salpingectomy on 02/16/2017 who p/w burning chest/epigastric pain and noted to be in afib with rvr. new onset afib: - s/p surgery 02/16. cannot confidently attribute afib 3d later to abdominal surgery and/or anesthesia, i.e a "reversible" etiology of fib. - CHADS VASC = 4, hence AC indicated. dr gordillo discussed risk/benefit with patient and family and they agree with plan. - per d/w surgery (dr cano), no contraindication for full-dose AC - pt >80 yrs, old, wt <60 kg--eliquis 2.5 bid started. - home lopressor 100 qd changed to toprol 50 bid here. - since was rapid despite high dose BB at home (though short-acting formulation) , will add diltiazem 30 TID here. - no palpitations or other new sx's (only her GERD) at home, despite very rapid HR to 160-170. advised pt of risk for tachy-CMP and/or CHF in future, and importance to f/u with us for monitoring. - tele remains NSR, no bradycardia. - ok for discharge from [facility] p.o.v.--recommend continue toprol 50 bid and diltiazem 30 TID until sees us in office (can change to cardizem CD 120 qd at that time if bp/hr stable and no s.e.) - would benefit from echo (can be done as outpatient, will not change mgmt accutely if remains clinically stable) - small bilateral effusions on ct scan, ? sec to recent abd surgery. limit IVF. defer lasix at present unless sob sx's. - no signs of ACS, see below cp/epigastric pain: - burning quality, consistent with her prior known GERD. sx's well controlled with PPI in past, but recurred off med. - nonspecific ST-Ts on ekg, not ischemic in appearance. trop neg x 2. - PPI started here - observe sx's. - defer stress test unless sx's of myocardial ischemia develop (or atyp cp persists on PPI) htn - bp controlled - continue metoprolol. - also on lotrel at home, diltiazem added here for AF rate control - consider add back PATTI later depending on bp, once AVN blockers are optimized abdominal pain s/p surgery - surgery following.
[2017-02-21] MEDS: PANTOPRAZOLE 40 MG TABLET (FP) PO SCH (09:16)
[2017-02-21] MEDS: METOPROLOL SUCCINATE 50 MG TAB.SR.24H (FP) PO SCH ×2 (09:17→21:23)
[2017-02-21] MEDS: APIXABAN 2.5 MG TABLET PO SCH ×2 (09:17→21:24)
[2017-02-21] MEDS: ONDANSETRON 4 MG TABLET PO PRN (09:17)
--- NOTE | 2017-02-21 12:57 | PN ---
Progress Note, Physician Chief Complaint: abdominal pain/burning History of Present Illness: 81yo female PMH HTN, GERD on omprezle s/p robotic hysterectomy and bilateral salpingectomy on 02/16/2017 presented with complaints of burning chest/epigastric pain last night. She is accompanied by her son and they report that since discharge she has been having a lot of acid reflux symptoms and some abdominal pain as well. Reflux symptoms have abated, tolerating her diet. no acute events overnight. - Current Medication List Current Medications: Active Medications Acetaminophen (Tylenol -) 650 mg PO Q6H PRN PRN Reason: PAIN LEVEL 1-5 Apixaban (Eliquis -) 2.5 mg PO BID [facility] Last Admin: 02/21/17 09:17 Dose: 2.5 mg Diltiazem HCl (Cardizem -) 30 mg PO TID [facility] Last Admin: 02/21/17 05:49 Dose: 30 mg Metoprolol Succinate (Toprol Xl -) 50 mg PO BID [facility] Last Admin: 02/21/17 09:17 Dose: 50 mg Morphine Sulfate (Morphine Injection -) 2 mg IVPUSH Q4H PRN PRN Reason: PAIN LEVEL 6-10 Ondansetron HCl (Zofran -) 4 mg PO Q8H PRN PRN Reason: NAUSEA AND/OR VOMITING Last Admin: 02/21/17 09:17 Dose: 4 mg Pantoprazole Sodium (Protonix -) 40 mg PO DAILY [facility] Last Admin: 02/21/17 09:16 Dose: 40 mg - Objective Vital Signs: Vital Signs Temperature 98.2 F 02/21/17 08:12 Pulse Rate 76 02/21/17 08:12 Respiratory Rate 20 02/21/17 08:12 Blood Pressure 134/59 02/21/17 08:12 O2 Sat by Pulse Oximetry (%) 96 02/21/17 08:12 Vital Signs Period Temp Pulse Resp BP Sys/Irizarry Pulse Ox Last 24 Hr 98.2 F-99.6 F 76-86 18-20 132-138/54-62 96-96 Constitutional: Yes: No Distress, Calm Eyes: Yes: Conjunctiva Clear, EOM Intact HENT: Yes: Atraumatic, Normocephalic Neck: Yes: Supple, Trachea Midline Cardiovascular: Yes: Regular Rate and Rhythm, S1, S2. No: Murmur Respiratory: Yes: Regular, CTA Bilaterally Gastrointestinal: Yes: Normal Bowel Sounds, Soft. No: Tenderness, Tenderness, Epigastrium ...Rectal Exam: Yes: Deferred Genitourinary: Yes: Han Present. No: CVA Tenderness - Left, CVA Tenderness - Right Wound/Incision: Yes: Clean/Dry, Well Approximated, Other (central crepitus in SQ ). No: Draining, Reddened Labs: CBC, BMP 02/21/17 05:05 02/21/17 05:05 INR, PTT INR 1.09 (0.82-1.09) 02/20/17 07:09 Microbiology 02/19/17 15:10 Urine Culture - Preliminary Urine - Urine Clean Catch Lactose Fermenting Neg Bacilli Problem List - Problems (1) Hiatal hernia Assessment/Plan: 81 yo HTN GERD with reflux like symptoms, urinary incontinence, and abdominal pain with subcutaneous emphysema POD3 s/p Robotic assisted hysterectomy and bilateral salpingectomy. CT shows an inflamed hiatal hernia with wall thickening with SQ air in abdominal wall tissues and a very large bladder. Not an acute abdomen on exam. A. GERD with hiatal hernia, now symptomatic after surgical insufflation B. Abdominal wall emphysema and abdominal pain. expected post operatively C. UTI and Urinary incontinence, expected post operatively Start diet as tolerated empiric IV antibiotics - Levaquin single dose given consider ID consult Restart a PPI oral GI evaluation for upper endoscopy Adequate analgesia D/C han in AM evaluation a be useful given history of prolapse and given expected pelvic inflammation Follow up by Dr. Meg Shell Trend labs for AM We will follow for serial exams Code(s): K44.9 - DIAPHRAGMATIC HERNIA WITHOUT OBSTRUCTION OR GANGRENE (2) Overflow incontinence of urine Code(s): N39.490 - OVERFLOW INCONTINENCE (3) Degenerative arthritis of thoracic spine Code(s): M47.814 - SPONDYLOSIS W/O MYELOPATHY OR RADICULOPATHY, THORACIC REGION (4) Atrial fibrillation Code(s): I48.91 - UNSPECIFIED ATRIAL FIBRILLATION Qualifiers: Atrial fibrillation type: paroxysmal Qualified Code(s): I48.0 - Paroxysmal atrial fibrillation (5) Chest pain Code(s): R07.9 - CHEST PAIN, UNSPECIFIED Qualifiers: Chest pain type: unspecified Qualified Code(s): R07.9 - Chest pain, unspecified
[2017-02-21] MEDS ORDERED: LEVOFLOXACIN 750 MG IVPB 750 MG/150 ML BAG IVPB ONE (12:58)
--- NOTE | 2017-02-21 14:20 | PN ---
Progress Note (short form) - Note Progress Note: pt seen/ examined . comfortable denies pain. feels better wants me to give singulair - says takes at home for allergies denies cp/sob. no abd pain. han + low grade temp. Vital Signs Temp 99.6 F 02/21/17 13:48 Pulse 75 02/21/17 13:48 Resp 20 02/21/17 13:48 BP 133/60 02/21/17 13:48 Pulse Ox 96 02/21/17 08:12 Intake & Output 02/20/17 02/21/17 02/21/17 23:59 11:59 23:59 Intake Total 710 350 Output Total 1500 1300 Balance -790 -1300 350 Intake: Oral 710 350 Output: Urine 1500 1300 Han 1500 1300 Other: Voiding Method Indwelling Catheter Indwelling Catheter Indwelling Catheter Bowel Movement No Active Medications Acetaminophen (Tylenol -) 650 mg PO Q6H PRN PRN Reason: PAIN LEVEL 1-5 Apixaban (Eliquis -) 2.5 mg PO BID [facility] Last Admin: 02/21/17 09:17 Dose: 2.5 mg Diltiazem HCl (Cardizem -) 30 mg PO TID [facility] Last Admin: 02/21/17 13:39 Dose: 30 mg Levofloxacin (Levaquin 750 Mg Premixed Ivpb -) 750 mg in 150 mls @ 100 mls/hr IVPB ONCE ONE Stop: 02/21/17 14:27 Metoprolol Succinate (Toprol Xl -) 50 mg PO BID [facility] Last Admin: 02/21/17 09:17 Dose: 50 mg Montelukast Sodium (Singulair -) 10 mg PO [facility] Morphine Sulfate (Morphine Injection -) 2 mg IVPUSH Q4H PRN PRN Reason: PAIN LEVEL 6-10 Ondansetron HCl (Zofran -) 4 mg PO Q8H PRN PRN Reason: NAUSEA AND/OR VOMITING Last Admin: 02/21/17 09:17 Dose: 4 mg Pantoprazole Sodium (Protonix -) 40 mg PO DAILY [facility] Last Admin: 02/21/17 09:16 Dose: 40 mg Solifenacin (Vesicare -) 10 mg PO DAILY [facility] CBC, BMP 02/21/17 05:05 02/21/17 05:05 Microbiology 02/19/17 15:10 Urine Culture - Preliminary Urine - Urine Clean Catch Lactose Fermenting Neg Bacilli Physical Examination Constitutional: Yes: Calm/ comfortable. Eyes: Yes: Conjunctiva Clear Neck: Yes: Supple. no jvd . Cardiovascular: Yes: Regular Rate and Rhythm (converted to sinus). Respiratory: Yes: Diminished (at bases) Gastrointestinal: Yes: Soft/ non tender . Edema: No Neurological: Yes: Alert Psychiatric: Yes: Alert Imaging - Results Cat Scan: Report Reviewed EKG: Report Reviewed Assessment/Plan New onset afib-- converted to sinus Abdominal pain- resolved recent robotic farm machinery erector surgery Hiatal hernia urinary retention uti better pain control eating ok gets oob - chair start on abx-- discussed with nursing staff Problem List - Problems (2) Hypertension Code(s): I10 - ESSENTIAL (PRIMARY) HYPERTENSION (3) Atrial fibrillation Code(s): I48.91 - UNSPECIFIED ATRIAL FIBRILLATION Qualifiers: Atrial fibrillation type: paroxysmal Qualified Code(s): I48.0 - Paroxysmal atrial fibrillation (4) Hiatal hernia Code(s): K44.9 - DIAPHRAGMATIC HERNIA WITHOUT OBSTRUCTION OR GANGRENE
[2017-02-21] MEDS: SOLIFENACIN SUCCINATE 5 MG TAB (FP) PO SCH (15:12)
[2017-02-21] MEDS: LEVOFLOXACIN 500 MG IVPB 500 MG/100 ML BAG IVPB SCH (15:12)
[2017-02-21] MEDS ORDERED: MAG HYDROX/AL HYDROX/SIMETH 30 ML UNIT-DOSE CUP PO PRN (19:31)
[2017-02-21] MEDS: morphine CARPU-JECT 10 MG/1 ML DISP.SYRIN IVPUSH PRN (20:17)
[2017-02-21] MEDS: POLYETHYLENE GLYCOL 3350 119 GM BTL PO SCH (20:47)
[2017-02-21] MEDS: MONTELUKAST NA 10 MG TABLET PO SCH (21:23)
[2017-02-22] MEDS: dilTIAZem HCL 30 MG TABLET (FP) PO SCH ×3 (06:44→21:47)
[2017-02-22 08:34] LABS: BASO % 0.4 % (0-2.0); EOS % 1.1 % (0-4.5); HEMATOCRIT 32.9 % (32.4-45.2); HEMOGLOBIN 10.9 GM/dL (10.7-15.3); LYMPH % 15.5 % (8-40); MCH 31.4 pg (25.7-33.7); MCHC 33.1 g/dl (32.0-36.0); MEAN PLT VOLUME 7.2 fl (7.5-11.1); MONO % 8.7 % (3.8-10.2); NEUT % 74.3 % (42.8-82.8); PLATELET COUNT 334 K/MM3 (134-434); RBC 3.46 M/mm3 (3.60-5.2); RDW 12.1 % (11.6-15.6); WHITE BLOOD COUNT 9.5 K/mm3 (4.0-10.0)
[2017-02-22 09:07] LABS: CHLORIDE 98 mmol/L (98-107); POTASSIUM 4.4 mmol/L (3.5-5.1); SODIUM 135 mmol/L (136-145)
--- NOTE | 2017-02-22 09:10 | PN ---
Progress Note, Physician Chief Complaint: abdominal pain/burning History of Present Illness: 81yo female PMH HTN, GERD on omprezle s/p robotic hysterectomy and bilateral salpingectomy on 02/16/2017 presented with complaints of burning chest/epigastric pain last night. She is accompanied by her son and they report that since discharge she has been having a lot of acid reflux symptoms and some abdominal pain as well. Reflux symptoms have abated, tolerating her diet. urinary symptoms have persisted, she describes urinary incontinence. no acute events overnight. - Current Medication List Current Medications: Active Medications Acetaminophen (Tylenol -) 650 mg PO Q6H PRN PRN Reason: PAIN LEVEL 1-5 Al Hydroxide/Mg Hydroxide (Mylanta Oral Suspension -) 30 ml PO Q6H PRN PRN Reason: DYSPEPSIA Last Admin: 02/21/17 19:52 Dose: 30 ml Apixaban (Eliquis -) 2.5 mg PO BID [facility] Last Admin: 02/21/17 21:24 Dose: 2.5 mg Diltiazem HCl (Cardizem -) 30 mg PO TID [facility] Last Admin: 02/22/17 06:44 Dose: 30 mg Levofloxacin (Levaquin 500 Mg Premixed Ivpb -) 500 mg in 100 mls @ 100 mls/hr IVPB DAILY [facility] Last Admin: 02/21/17 15:12 Dose: 100 mls/hr Metoprolol Succinate (Toprol Xl -) 50 mg PO BID [facility] Last Admin: 02/21/17 21:23 Dose: 50 mg Montelukast Sodium (Singulair -) 10 mg PO HS [facility] Last Admin: 02/21/17 21:23 Dose: 10 mg Morphine Sulfate (Morphine Injection -) 2 mg IVPUSH Q4H PRN PRN Reason: PAIN LEVEL 6-10 Last Admin: 02/21/17 20:17 Dose: 2 mg Ondansetron HCl (Zofran -) 4 mg PO Q8H PRN PRN Reason: NAUSEA AND/OR VOMITING Last Admin: 02/21/17 09:17 Dose: 4 mg Pantoprazole Sodium (Protonix -) 40 mg PO DAILY [facility] Last Admin: 02/21/17 09:16 Dose: 40 mg Polyethylene Glycol (Miralax (For Daily Use) -) 17 gm PO DAILY [facility] Last Admin: 01/14/18 20:47 Dose: 17 gm Solifenacin (Vesicare -) 10 mg PO DAILY [facility] Last Admin: 02/21/17 15:12 Dose: 10 mg - Objective Vital Signs: Vital Signs Temperature 98.7 F 02/22/17 05:44 Pulse Rate 77 02/22/17 05:44 Respiratory Rate 20 02/22/17 05:44 Blood Pressure 138/74 02/22/17 05:44 O2 Sat by Pulse Oximetry (%) 96 02/21/17 21:00 Vital Signs Period Temp Pulse Resp BP Sys/Irizarry Pulse Ox Last 24 Hr 98.2 F-99.6 F 72-77 19-20 133-143/60-81 96 Constitutional: Yes: Well Nourished, No Distress, Calm Eyes: Yes: Conjunctiva Clear, EOM Intact HENT: Yes: Atraumatic, Normocephalic Neck: Yes: Supple, Trachea Midline Cardiovascular: Yes: Regular Rate and Rhythm, S1, S2. No: Murmur Respiratory: Yes: Regular, CTA Bilaterally. No: Rhonchi, Wheezes Gastrointestinal: Yes: Normal Bowel Sounds, Soft, Other (less perimubilical subcutaneous crepitus). 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 CT shows an inflamed hiatal hernia with wall thickening with SQ air in abdominal wall tissues and a very large bladder. Feeling much better, still reporting being incontinent of urine. A. GERD with hiatal hernia, now symptomatic after surgical insufflation - Resolved B. Abdominal wall emphysema and abdominal pain. expected post operatively - Resolving C. 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 appreciated We will follow peripherally for serial exams Code(s): K44.9 - DIAPHRAGMATIC HERNIA WITHOUT OBSTRUCTION OR GANGRENE (2) Overflow incontinence of urine Code(s): N39.490 - OVERFLOW INCONTINENCE (3) Degenerative arthritis of thoracic spine Code(s): M47.814 - SPONDYLOSIS W/O MYELOPATHY OR RADICULOPATHY, THORACIC REGION (4) Atrial fibrillation Code(s): I48.91 - UNSPECIFIED ATRIAL FIBRILLATION Qualifiers: Atrial fibrillation type: paroxysmal Qualified Code(s): I48.0 - Paroxysmal atrial fibrillation (5) Chest pain Code(s): R07.9 - CHEST PAIN, UNSPECIFIED Qualifiers: Chest pain type: unspecified Qualified Code(s): R07.9 - Chest pain, unspecified
[2017-02-22 09:27] LABS: ALBUMIN 2.5 g/dl (3.4-5.0); ALK PHOS 58 U/L (45-117); ANION GAP 10 (8-16); BILIRUBIN,TOTAL 0.4 mg/dL (0.2-1.0); BLOOD UREA NITROGEN 10 mg/dL (7-18); CALCIUM 8.5 mg/dL (8.5-10.1); CO2 27 mmol/L (21-32); CREATININE 0.8 mg/dL (0.55-1.02); GLUCOSE,RANDOM 101 mg/dL (74-106); SGOT/AST 13 U/L (15-37); SGPT/ALT 21 U/L (12-78); TOT PROT 5.5 g/dl (6.4-8.2)
[2017-02-22] MEDS: METOPROLOL SUCCINATE 50 MG TAB.SR.24H (FP) PO SCH ×2 (10:19→21:47)
[2017-02-22] MEDS: APIXABAN 2.5 MG TABLET PO SCH ×2 (10:19→21:47)
[2017-02-22] MEDS: LEVOFLOXACIN 500 MG IVPB 500 MG/100 ML BAG IVPB SCH (10:19)
[2017-02-22] MEDS: SOLIFENACIN SUCCINATE 5 MG TAB (FP) PO SCH (10:19)
[2017-02-22] MEDS: PANTOPRAZOLE 40 MG TABLET (FP) PO SCH (10:19)
[2017-02-22] MEDS: POLYETHYLENE GLYCOL 3350 119 GM BTL PO SCH (10:20)
--- NOTE | 2017-02-22 11:06 | PN ---
Progress Note (short form) - Note Progress Note: pt comfortable feels better han d/eric passing urine denies pain Vital Signs Temp 98.7 F 02/22/17 05:44 Pulse 77 02/22/17 05:44 Resp 20 02/22/17 05:44 BP 138/74 02/22/17 05:44 Pulse Ox 96 02/21/17 21:00 Intake & Output 02/21/17 02/21/17 02/22/17 11:59 23:59 11:59 Intake Total 1430 240 Output Total 1300 1880 700 Balance -1300 -450 -460 Intake: IV 20 Saline lock 20 Oral 1410 240 Output: Urine 1300 1880 700 Han 1300 1500 700 Straight Cath 380 Other: Voiding Method Indwelling Catheter Indwelling Catheter Bowel Movement No Active Medications Acetaminophen (Tylenol -) 650 mg PO Q6H PRN PRN Reason: PAIN LEVEL 1-5 Al Hydroxide/Mg Hydroxide (Mylanta Oral Suspension -) 30 ml PO Q6H PRN PRN Reason: DYSPEPSIA Last Admin: 02/21/17 19:52 Dose: 30 ml Apixaban (Eliquis -) 2.5 mg PO BID [facility] Last Admin: 02/22/17 10:19 Dose: 2.5 mg Diltiazem HCl (Cardizem -) 30 mg PO TID [facility] Last Admin: 02/22/17 06:44 Dose: 30 mg Levofloxacin (Levaquin 500 Mg Premixed Ivpb -) 500 mg in 100 mls @ 100 mls/hr IVPB DAILY [facility] Last Admin: 02/22/17 10:19 Dose: 100 mls/hr Metoprolol Succinate (Toprol Xl -) 50 mg PO BID [facility] Last Admin: 02/22/17 10:19 Dose: 50 mg Montelukast Sodium (Singulair -) 10 mg PO HS [facility] Last Admin: 02/21/17 21:23 Dose: 10 mg Morphine Sulfate (Morphine Injection -) 2 mg IVPUSH Q4H PRN PRN Reason: PAIN LEVEL 6-10 Last Admin: 02/21/17 20:17 Dose: 2 mg Ondansetron HCl (Zofran -) 4 mg PO Q8H PRN PRN Reason: NAUSEA AND/OR VOMITING Last Admin: 02/21/17 09:17 Dose: 4 mg Pantoprazole Sodium (Protonix -) 40 mg PO DAILY [facility] Last Admin: 02/22/17 10:19 Dose: 40 mg Polyethylene Glycol (Miralax (For Daily Use) -) 17 gm PO DAILY [facility] Last Admin: 02/22/17 10:20 Dose: 17 gm Solifenacin (Vesicare -) 10 mg PO DAILY [facility] Last Admin: 02/22/17 10:19 Dose: 10 mg CBC, BMP 02/22/17 06:20 02/22/17 06:20 Microbiology 02/19/17 15:10 Urine Culture - Preliminary Urine - Urine Clean Catch Lactose Fermenting Neg Bacilli Physical Examination Constitutional: Yes: Calm/ comfortable. Eyes: Yes: Conjunctiva Clear Neck: Yes: Supple. no jvd . Cardiovascular: Yes: Regular Rate and Rhythm (converted to sinus). Respiratory: Yes: Diminished (at bases) Gastrointestinal: Yes: Soft/ non tender . Edema: No Neurological: Yes: Alert Psychiatric: Yes: Alert Imaging - Results Cat Scan: Report Reviewed EKG: Report Reviewed Assessment/Plan New onset afib-- converted to sinus Abdominal pain- resolved recent robotic food stylist surgery Hiatal hernia urinary retention uti better pain control eating ok gets oob - chair abx-- f/u cultures physical therapy d/c planning-- anticipate in 1-2 days discussed with nursing staff Problem List - Problems (2) Hypertension Code(s): I10 - ESSENTIAL (PRIMARY) HYPERTENSION (3) Atrial fibrillation Code(s): I48.91 - UNSPECIFIED ATRIAL FIBRILLATION Qualifiers: Atrial fibrillation type: paroxysmal Qualified Code(s): I48.0 - Paroxysmal atrial fibrillation (4) Hiatal hernia Code(s): K44.9 - DIAPHRAGMATIC HERNIA WITHOUT OBSTRUCTION OR GANGRENE
--- NOTE | 2017-02-22 16:05 | PN ---
Progress Note, Physician Chief Complaint: cp, afib History of Present Illness: no cp, abd pain no palpit no sob - Current Medication List Current Medications: Active Medications Acetaminophen (Tylenol -) 650 mg PO Q6H PRN PRN Reason: PAIN LEVEL 1-5 Al Hydroxide/Mg Hydroxide (Mylanta Oral Suspension -) 30 ml PO Q6H PRN PRN Reason: DYSPEPSIA Last Admin: 02/21/17 19:52 Dose: 30 ml Apixaban (Eliquis -) 2.5 mg PO BID [facility] Last Admin: 02/22/17 10:19 Dose: 2.5 mg Diltiazem HCl (Cardizem -) 30 mg PO TID [facility] Last Admin: 02/22/17 15:16 Dose: 30 mg Levofloxacin (Levaquin 500 Mg Premixed Ivpb -) 500 mg in 100 mls @ 100 mls/hr IVPB DAILY [facility] Last Admin: 02/22/17 10:19 Dose: 100 mls/hr Metoprolol Succinate (Toprol Xl -) 50 mg PO BID [facility] Last Admin: 02/22/17 10:19 Dose: 50 mg Montelukast Sodium (Singulair -) 10 mg PO HS [facility] Last Admin: 02/21/17 21:23 Dose: 10 mg Morphine Sulfate (Morphine Injection -) 2 mg IVPUSH Q4H PRN PRN Reason: PAIN LEVEL 6-10 Last Admin: 02/21/17 20:17 Dose: 2 mg Ondansetron HCl (Zofran -) 4 mg PO Q8H PRN PRN Reason: NAUSEA AND/OR VOMITING Last Admin: 02/21/17 09:17 Dose: 4 mg Pantoprazole Sodium (Protonix -) 40 mg PO DAILY [facility] Last Admin: 02/22/17 10:19 Dose: 40 mg Polyethylene Glycol (Miralax (For Daily Use) -) 17 gm PO DAILY [facility] Last Admin: 02/22/17 10:20 Dose: 17 gm Solifenacin (Vesicare -) 10 mg PO DAILY [facility] Last Admin: 02/22/17 10:19 Dose: 10 mg - Objective Vital Signs: Vital Signs Temperature 98.3 F 02/22/17 14:26 Pulse Rate 76 02/22/17 14:26 Respiratory Rate 20 02/22/17 14:26 Blood Pressure 145/66 02/22/17 14:26 O2 Sat by Pulse Oximetry (%) 96 02/22/17 09:00 Constitutional: Yes: Well Nourished, No Distress, Calm Cardiovascular: Yes: Regular Rate and Rhythm, S1, S2. No: Gallop, Murmur Respiratory: Yes: Regular, CTA Bilaterally. No: Accessory Muscle Use, Rales, Wheezes Extremities: No: Cold Edema: No Neurological: Yes: Alert, Oriented Psychiatric: No: Agitated Labs: CBC, BMP 02/22/17 06:20 02/22/17 06:20 INR, PTT INR 1.09 (0.82-1.09) 02/20/17 07:09 Assessment/Plan ekg: afib with rvr 166 bpm. rbbb with assctd ST-T anteroseptal leads. lateral std nonspecific for ischemia repeat ekg: sr, NSST-T ct c/a/p: images and report reviewed. 81 yo with h/o HTN, GERD, recently off PPI and s/p robotic hysterectomy and bilateral salpingectomy on 02/16/2017 who p/w burning chest/epigastric pain and noted to be in afib with rvr. new onset afib: - s/p surgery 02/16. cannot confidently attribute afib 3d later to abdominal surgery and/or anesthesia, i.e a "reversible" etiology of fib. - CHADS VASC = 4, hence AC indicated. dr gordillo discussed risk/benefit with patient and family and they agree with plan. - per d/w surgery (dr cano), no contraindication for full-dose AC - pt >80 yrs, old, wt <60 kg--eliquis 2.5 bid started. - home lopressor 100 qd changed to toprol 50 bid here. - since was rapid despite high dose BB at home (though short-acting formulation) , will add diltiazem 30 TID here. - no palpitations or other new sx's (only her GERD) at home, despite very rapid HR to 160-170. advised pt of risk for tachy-CMP and/or CHF in future, and importance to f/u with us for monitoring. - tele remains NSR, no bradycardia. - ok for discharge from [facility] p.[facility].--recommend continue toprol 50 bid and diltiazem 30 TID until sees us in office (can change to cardizem CD 120 qd at that time if bp/hr stable and no s.e.) - would benefit from echo (can be done as outpatient, will not change mgmt accutely if remains clinically stable) - small bilateral effusions on ct scan, ? sec to recent abd surgery. limit IVF. defer lasix at present unless sob sx's. - no signs of ACS, see below cp/epigastric pain: - burning quality, consistent with her prior known GERD. sx's well controlled with PPI in past, but recurred off med. - nonspecific ST-Ts on ekg, not ischemic in appearance. trop neg x 2. - PPI started here - observe sx's. - defer stress test unless sx's of myocardial ischemia develop (or atyp cp persists on PPI) htn - bp controlled - continue metoprolol. - also on lotrel at home, diltiazem added here for AF rate control - consider add back PATTI later depending on bp, once AVN blockers are optimized abdominal pain s/p surgery - surgery following.
[2017-02-22] MEDS: MONTELUKAST NA 10 MG TABLET PO SCH (21:47)
[2017-02-22] MEDS: morphine CARPU-JECT 10 MG/1 ML DISP.SYRIN IVPUSH PRN (23:52)
[2017-02-23] MEDS: dilTIAZem HCL 30 MG TABLET (FP) PO SCH ×3 (06:36→22:24)
--- NOTE | 2017-02-23 09:15 | PN ---
Progress Note (short form) - Note Progress Note: pt comfortable no complains afebrile denies pain. u/c - e coli - esbli i/d consult requested. passing urine Vital Signs Temp 98.4 F 02/23/17 06:00 Pulse 66 02/23/17 06:00 Resp 18 02/23/17 06:00 BP 135/64 02/23/17 06:00 Pulse Ox 98 02/22/17 21:00 Intake & Output 02/22/17 02/22/17 02/23/17 11:59 23:59 11:59 Intake Total 240 1580 300 Output Total 700 Balance -460 1580 300 Intake: Oral 240 1580 300 Output: Urine 700 Steven 700 Other: Voiding Method Bedside Commode Bedside Commode Bedside Commode # Unmeasured Voids Straight Cath 1 Void 3 1 Bowel Movement No No Active Medications Acetaminophen (Tylenol -) 650 mg PO Q6H PRN PRN Reason: PAIN LEVEL 1-5 Al Hydroxide/Mg Hydroxide (Mylanta Oral Suspension -) 30 ml PO Q6H PRN PRN Reason: DYSPEPSIA Last Admin: 02/21/17 19:52 Dose: 30 ml Apixaban (Eliquis -) 2.5 mg PO BID [facility] Last Admin: 02/22/17 21:47 Dose: 2.5 mg Diltiazem HCl (Cardizem -) 30 mg PO TID [facility] Last Admin: 02/23/17 06:36 Dose: 30 mg Levofloxacin (Levaquin 500 Mg Premixed Ivpb -) 500 mg in 100 mls @ 100 mls/hr IVPB DAILY [facility] Last Admin: 02/22/17 10:19 Dose: 100 mls/hr Metoprolol Succinate (Toprol Xl -) 50 mg PO BID [facility] Last Admin: 02/22/17 21:47 Dose: 50 mg Montelukast Sodium (Singulair -) 10 mg PO HS [facility] Last Admin: 02/22/17 21:47 Dose: 10 mg Morphine Sulfate (Morphine Injection -) 2 mg IVPUSH Q4H PRN PRN Reason: PAIN LEVEL 6-10 Last Admin: 02/22/17 23:52 Dose: 2 mg Ondansetron HCl (Zofran -) 4 mg PO Q8H PRN PRN Reason: NAUSEA AND/OR VOMITING Last Admin: 02/21/17 09:17 Dose: 4 mg Pantoprazole Sodium (Protonix -) 40 mg PO DAILY [facility] Last Admin: 02/22/17 10:19 Dose: 40 mg Polyethylene Glycol (Miralax (For Daily Use) -) 17 gm PO DAILY [facility] Last Admin: 02/22/17 10:20 Dose: 17 gm Solifenacin (Vesicare -) 10 mg PO DAILY [facility] Last Admin: 02/22/17 10:19 Dose: 10 mg CBC, BMP 02/22/17 06:20 02/22/17 06:20 Microbiology 02/19/17 15:10 Urine Culture - Final Urine - Urine Clean Catch Escherichia Coli 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 Eyes: Yes: Conjunctiva Clear Neck: Yes: Supple. no jvd .no bruie Cardiovascular: Yes: Regular Rate and Rhythm (converted to sinus). Respiratory: Yes: Diminished (at bases) Gastrointestinal: Yes: Soft/ non tender . Edema: No Neurological: Yes: Alert Psychiatric: Yes: Alert Imaging - Results Cat Scan: Report Reviewed EKG: Report Reviewed Assessment/Plan New onset afib-- converted to sinus Abdominal pain- resolved recent robotic production control technologist surgery Hiatal hernia urinary retention- post -op resolved uti-- e coli- esbl gets oob - chair abx-- PER I/D- WILL DISCUSS. physical therapy d/c planning-- Problem List - Problems (2) Hypertension Code(s): I10 - ESSENTIAL (PRIMARY) HYPERTENSION (3) Atrial fibrillation Code(s): I48.91 - UNSPECIFIED ATRIAL FIBRILLATION Qualifiers: Atrial fibrillation type: paroxysmal Qualified Code(s): I48.0 - Paroxysmal atrial fibrillation (4) Hiatal hernia Code(s): K44.9 - DIAPHRAGMATIC HERNIA WITHOUT OBSTRUCTION OR GANGRENE
--- NOTE | 2017-02-23 10:02 | PN ---
Progress Note, Physician Chief Complaint: abdominal pain/burning History of Present Illness: 81yo female PMH HTN, GERD on omprezle s/p robotic hysterectomy and bilateral salpingectomy on 02/16/2017 presented with complaints of burning chest/epigastric pain last night. She is accompanied by her son and they report that since discharge she has been having a lot of acid reflux symptoms and some abdominal pain as well. Reflux symptoms have abated, tolerating her diet. urinary symptoms have persisted, she describes urinary incontinence. no acute events overnight. - Current Medication List Current Medications: Active Medications Acetaminophen (Tylenol -) 650 mg PO Q6H PRN PRN Reason: PAIN LEVEL 1-5 Al Hydroxide/Mg Hydroxide (Mylanta Oral Suspension -) 30 ml PO Q6H PRN PRN Reason: DYSPEPSIA Last Admin: 02/21/17 19:52 Dose: 30 ml Apixaban (Eliquis -) 2.5 mg PO BID [facility] Last Admin: 02/22/17 21:47 Dose: 2.5 mg Diltiazem HCl (Cardizem -) 30 mg PO TID [facility] Last Admin: 02/23/17 06:36 Dose: 30 mg Levofloxacin (Levaquin 500 Mg Premixed Ivpb -) 500 mg in 100 mls @ 100 mls/hr IVPB DAILY [facility] Last Admin: 02/22/17 10:19 Dose: 100 mls/hr Metoprolol Succinate (Toprol Xl -) 50 mg PO BID [facility] Last Admin: 02/22/17 21:47 Dose: 50 mg Montelukast Sodium (Singulair -) 10 mg PO HS [facility] Last Admin: 02/22/17 21:47 Dose: 10 mg Morphine Sulfate (Morphine Injection -) 2 mg IVPUSH Q4H PRN PRN Reason: PAIN LEVEL 6-10 Last Admin: 02/22/17 23:52 Dose: 2 mg Ondansetron HCl (Zofran -) 4 mg PO Q8H PRN PRN Reason: NAUSEA AND/OR VOMITING Last Admin: 02/21/17 09:17 Dose: 4 mg Pantoprazole Sodium (Protonix -) 40 mg PO DAILY [facility] Last Admin: 02/22/17 10:19 Dose: 40 mg Polyethylene Glycol (Miralax (For Daily Use) -) 17 gm PO DAILY [facility] Last Admin: 01/15/18 10:20 Dose: 17 gm Solifenacin (Vesicare -) 10 mg PO DAILY [facility] Last Admin: 02/22/17 10:19 Dose: 10 mg - Objective Vital Signs: Vital Signs Temperature 99.0 F 02/23/17 09:00 Pulse Rate 73 02/23/17 09:00 Respiratory Rate 22 02/23/17 09:00 Blood Pressure 141/64 02/23/17 09:00 O2 Sat by Pulse Oximetry (%) 98 02/22/17 21:00 Vital Signs Period Temp Pulse Resp BP Sys/Irizarry Pulse Ox Last 24 Hr 97.8 F-99.0 F 66-76 18-22 135-148/64-66 98-98 Constitutional: Yes: Well Nourished, No Distress, Calm Eyes: Yes: Conjunctiva Clear, EOM Intact HENT: Yes: Atraumatic, Normocephalic Neck: Yes: Supple, Trachea Midline Cardiovascular: Yes: Regular Rate and Rhythm, S1, S2. No: Murmur Respiratory: Yes: Regular, CTA Bilaterally Gastrointestinal: Yes: Normal Bowel Sounds, Soft. No: Distention, Hematemesis, Tenderness ...Rectal Exam: Yes: Deferred Extremities: No: Cool, Cyanosis Neurological: Yes: Alert, Oriented Psychiatric: Yes: Alert, Oriented Labs: CBC, BMP 02/22/17 06:20 02/22/17 06:20 INR, PTT INR 1.09 (0.82-1.09) 02/20/17 07:09 Problem List - Problems (1) Hiatal hernia Assessment/Plan: 81 yo HTN GERD with reflux like symptoms, urinary incontinence, and abdominal pain with subcutaneous emphysema POD7 s/p Robotic assisted hysterectomy and bilateral salpingectomy. CT shows an inflamed hiatal hernia with wall thickening with SQ air in abdominal wall tissues and a very large bladder. Feeling much better, still reporting being incontinent of urine. A. GERD with hiatal hernia, now symptomatic after surgical insufflation - Resolved B. Abdominal wall emphysema and abdominal pain. expected post operatively - Resolving C. UTI and Urinary incontinence, expected post operatively - Resolving Diet as tolerated continue oral PPI GI evaluation for upper endoscopy Adequate analgesia Fur Buyer followup appreciated stable for D/C f/u with TERRITORY DEVELOPMENT MANAGER surgeon Code(s): K44.9 - DIAPHRAGMATIC HERNIA WITHOUT OBSTRUCTION OR GANGRENE (2) Overflow incontinence of urine Code(s): N39.490 - OVERFLOW INCONTINENCE (3) Degenerative arthritis of thoracic spine Code(s): M47.814 - SPONDYLOSIS W/O MYELOPATHY OR RADICULOPATHY, THORACIC REGION (4) Atrial fibrillation Code(s): I48.91 - UNSPECIFIED ATRIAL FIBRILLATION Qualifiers: Atrial fibrillation type: paroxysmal Qualified Code(s): I48.0 - Paroxysmal atrial fibrillation (5) Chest pain Code(s): R07.9 - CHEST PAIN, UNSPECIFIED Qualifiers: Chest pain type: unspecified Qualified Code(s): R07.9 - Chest pain, unspecified
[2017-02-23] MEDS: LEVOFLOXACIN 500 MG IVPB 500 MG/100 ML BAG IVPB SCH ×2 (11:21→12:14)
[2017-02-23] MEDS: METOPROLOL SUCCINATE 50 MG TAB.SR.24H (FP) PO SCH ×2 (11:21→22:24)
[2017-02-23] MEDS: POLYETHYLENE GLYCOL 3350 119 GM BTL PO SCH (11:21)
[2017-02-23] MEDS: SOLIFENACIN SUCCINATE 5 MG TAB (FP) PO SCH (11:21)
[2017-02-23] MEDS: PANTOPRAZOLE 40 MG TABLET (FP) PO SCH (11:21)
[2017-02-23] MEDS: APIXABAN 2.5 MG TABLET PO SCH ×2 (11:22→22:24)
--- NOTE | 2017-02-23 12:08 | PN ---
Progress Note (short form) - Note Progress Note: ID consult dictated imp/reccd 81 year old female s/p robotic hysterectomy/BSO 02/16, she was re-admitted 02/19 c/ o urnary incontinence and chest discomfort and burning w/u included CTA- no PE, moderate hiatal hernia found to be in new afib also noted to have a UTI she had a han placed in ED- now out but continues to have urinary incontinence UTI- ecoli esbl- d/c levaquin, macrobid for 7 days-continues to have incontinence- probably postop but will treat for UTI as well contact isolation afib s/p hysterectomy Problem List - Problems (1) UTI (urinary tract infection) Code(s): N39.0 - URINARY TRACT INFECTION, SITE NOT SPECIFIED (2) Atrial fibrillation Code(s): I48.91 - UNSPECIFIED ATRIAL FIBRILLATION Qualifiers: Atrial fibrillation type: paroxysmal Qualified Code(s): I48.0 - Paroxysmal atrial fibrillation (4) Infection due to ESBL-producing Escherichia coli Code(s): A49.8 - OTHER BACTERIAL INFECTIONS OF UNSPECIFIED SITE; Z16.12 - EXTENDED SPECTRUM BETA LACTAMASE (ESBL) RESISTANCE
[2017-02-23] MEDS ORDERED: SODIUM CHLORIDE NASAL SPRAY 44 ML BOTTLE NS PRN (13:10)
--- NOTE | 2017-02-23 13:37 | DS ---
Physical Examination Vital Signs: Vital Signs Temperature 99.0 F 02/23/17 09:00 Pulse Rate 76 02/23/17 12:57 Respiratory Rate 20 02/23/17 12:57 Blood Pressure 153/66 02/23/17 12:57 O2 Sat by Pulse Oximetry (%) 98 02/22/17 21:00 Findings/Remarks: see today's progress note Labs: CBC, BMP 02/22/17 06:20 02/22/17 06:20 Discharge Summary Reason For Visit: ATRIAL FIB,CHEST PAIN Current Active Problems Atrial fibrillation (Acute) Chest pain (Acute) Degenerative arthritis of thoracic spine (Acute) Hiatal hernia (Acute) History of gynecologic surgery (Acute) Hypertension (Acute) Infection due to ESBL-producing Escherichia coli (Acute) Overflow incontinence of urine (Acute) UTI (urinary tract infection) (Acute) Hospital Course: Pt 81y F hx of htn s/p hysterectomy 3 days ago presents to er with complaint of burning chest/epigastric pain since last night. She complains of increased urinary frequency since last night with the pain getting worse. She denies any sob, numbness.tingling/weakness, vision changes, lightheadedness , fever/chills. per EMS, she was noted to be in the 180s-190s HR, SVT vs afib - was given adenosine 6 followed by 12 that failed to break the rhthm - no p waves were seen - pt was started on diltaizem by EMS with improvement of her rate. on arrival, her HR was 130s and irregularly irregular. she was given another 30mg of diltiazem here with improvement to 90s but increased again to 130s. Given another 20mg of dilitaizem. In er pt in afib- given - cardizem - converted to sinus ct scan - showed hiatal hernia/ gas patient followed by surgical team treated conservatively TIGHTENER surgeon also follow the patient Patient got much better Treated for UTI with antibiotics also Urine culture showed Escherichia coli--- ESBL Sensitive to Macrobid ID consult also taken Patient also now on blood thinners and diltiazem Now stable for discharge Medications reconciled Prescription sent to pharmacy Discussed with nursing staff patient to follow with her PMD--Next week Condition: Stable - Instructions Referrals: Ariel Fernandes MD [Primary Care Provider] - Disposition: HOME - Home Medications Comprehensive Discharge Medication List: Ambulatory Orders Metoprolol Tartrate [Lopressor -] 100 mg PO DAILY 04/29/14 Amlodipine Besylate/Benazepril [Lotrel 5-40 mg Capsule] 1 each PO DAILY Apixaban [Eliquis -] 2.5 mg PO BID #60 tablet 02/23/17 Diltiazem [Cardizem -] 30 mg PO TID #90 tablet 02/23/17 Montelukast Na [Singulair -] 10 mg PO HS tablet 02/23/17 Nitrofurantoin Macrocrystal [Macrodantin -] 50 mg PO Q6HPO #28 capsule 02/23/17 Pantoprazole Sodium [Protonix -] 40 mg PO DAILY tablet.ec 02/23/17 Polyethylene Glycol 3350 [Miralax 119 gm Btl -] 17 gm PO DAILY bottle 02/23/17 Solifenacin Succinate [Vesicare -] 10 mg PO DAILY #30 tab 02/23/17
--- NOTE | 2017-02-23 14:08 | CONS ---
DATE OF CONSULTATION: 02/23/2017 REQUESTING PHYSICIAN: Cande Hale MD HISTORY OF PRESENT ILLNESS: This is an 81-year-old woman who has a history of hypertension. She is status post robotic hysterectomy with BSO on February 16. She was discharged on February 17. She has had complaints of burning chest pain and epigastric pain along with urinary incontinence since her discharge, which has been getting worse. She presented with these complaints on February 19. She was thought to be in rapid atrial fibrillation in the emergency room, was given adenosine and started on diltiazem. She had a CT of her chest, abdomen, and pelvis that was notable for a moderate hiatal hernia. There was no PE, and she had some postoperative gas in her abdomen. She was seen by Surgery and Gynecology. It was felt she did not have a surgical abdomen and that her symptoms were most likely related to GERD. She had a Steven placed transiently and was started on Levaquin for a possible UTI. I am asked to see her today because her urine culture is growing an E. coli ESBL organism. The Steven was removed yesterday, and she reports continued incontinence, which she reports as new. She has no abdominal pain and is resting comfortably. PAST MEDICAL HISTORY: Notable for hypertension. She has a history of GERD, as well. She has a history as well of osteoarthritis, kyphosis, vertebral compression fracture. SURGICAL HISTORY: For the recent robotic hysterectomy. SOCIAL HISTORY: She never smoked. She occasionally has a glass of wine with dinner. She lives in the community. She is . She has 2 children. 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 FAMILY HISTORY: There is no malignancy, diabetes, coronary artery disease, or CVA. REVIEW OF SYSTEMS: She reports her chest burning is present, but improved, and that she continues to have fairly severe urinary incontinence. She is wearing a diaper. PHYSICAL EXAMINATION: General: She is awake and alert. Vital signs: Temperature is 99; pulse is 73, blood pressure is 141/64, respiratory rate 22. HEENT: She is normocephalic. Her eyes are anicteric. Neck: Supple. Lungs: Clear to auscultation. Heart: Regular rate and rhythm. Abdomen: Soft, nontender. She has no palpable bladder. Extremities: Without edema. DIAGNOSTIC DATA: White count is 9.5, hemoglobin 10.9, platelets are 334. BUN 10, creatinine 0.8. Normal liver function test. Urine culture is growing E. coli ESBL licensed sales producer greater than 100,000 colonies resistant to Bactrim and tazobactam. SUMMARY: 1. This is an 81-year-old woman with Escherichia coli urinary tract infection. She continues to have incontinence probably postoperatively, but cannot rule out a urinary tract infection. So, we will treat her with Macrobid for 7 days, have contact isolation while in the hospital 2. New atrial fibrillation. Management by Cardiology. 3. Status post hysterectomy. SHAKIR KANG M.D. [id number]
[2017-02-23] MEDS: NITROFURANTOIN MACROCRYSTAL 50 MG CAPSULE (FP) PO SCH ×3 (14:45→23:01)
[2017-02-23] MEDS ORDERED: NITROFURANTOIN MACROCRYSTAL 50 MG CAPSULE (FP) PO SCH (18:00)
--- NOTE | 2017-02-23 18:43 | PN ---
Progress Note, Physician Chief Complaint: cp, afib History of Present Illness: constipated no cp no palpt, sob, dizzy - Current Medication List Current Medications: Active Medications Acetaminophen (Tylenol -) 650 mg PO Q6H PRN PRN Reason: PAIN LEVEL 1-5 Al Hydroxide/Mg Hydroxide (Mylanta Oral Suspension -) 30 ml PO Q6H PRN PRN Reason: DYSPEPSIA Last Admin: 02/21/17 19:52 Dose: 30 ml Apixaban (Eliquis -) 2.5 mg PO BID [facility] Last Admin: 02/23/17 11:22 Dose: 2.5 mg Diltiazem HCl (Cardizem -) 30 mg PO TID [facility] Last Admin: 02/23/17 14:45 Dose: 30 mg Metoprolol Succinate (Toprol Xl -) 50 mg PO BID [facility] Last Admin: 02/23/17 11:21 Dose: 50 mg Montelukast Sodium (Singulair -) 10 mg PO HS [facility] Last Admin: 02/22/17 21:47 Dose: 10 mg Nitrofurantoin Macrocrystals (Macrodantin -) 50 mg PO Q6HPO [facility] Last Admin: 02/23/17 17:15 Dose: Not Given Ondansetron HCl (Zofran -) 4 mg PO Q8H PRN PRN Reason: NAUSEA AND/OR VOMITING Last Admin: 02/21/17 09:17 Dose: 4 mg Pantoprazole Sodium (Protonix -) 40 mg PO DAILY [facility] Last Admin: 02/23/17 11:21 Dose: 40 mg Polyethylene Glycol (Miralax (For Daily Use) -) 17 gm PO DAILY [facility] Last Admin: 02/23/17 11:21 Dose: 17 gm Sodium Chloride ([place] Nasal [place] -) 1 spray NS Q6H PRN PRN Reason: NASAL CONGESTION Solifenacin (Vesicare -) 10 mg PO DAILY [facility] Last Admin: 02/23/17 11:21 Dose: 10 mg - Objective Vital Signs: Vital Signs Temperature 98.1 F 02/23/17 14:35 Pulse Rate 72 02/23/17 14:35 Respiratory Rate 22 02/23/17 14:35 Blood Pressure 138/68 02/23/17 14:35 O2 Sat by Pulse Oximetry (%) 98 02/22/17 21:00 Constitutional: Yes: Well Nourished, No Distress, Calm Cardiovascular: Yes: Regular Rate and Rhythm, S1, S2. No: Gallop, Murmur Respiratory: Yes: Regular, CTA Bilaterally. No: Accessory Muscle Use Extremities: No: Cold Edema: No Neurological: Yes: Alert, Oriented Psychiatric: No: Agitated Labs: CBC, BMP 02/22/17 06:20 02/22/17 06:20 INR, PTT INR 1.09 (0.82-1.09) 02/20/17 07:09 Assessment/Plan ekg: afib with rvr 166 bpm. rbbb with assctd ST-T anteroseptal leads. lateral std nonspecific for ischemia repeat ekg: sr, NSST-T ct c/a/p: images and report reviewed. 81 yo with h/o HTN, GERD, recently off PPI and s/p robotic hysterectomy and bilateral salpingectomy on 02/16/2017 who p/w burning chest/epigastric pain and noted to be in afib with rvr. new onset afib: - s/p surgery 02/16. cannot confidently attribute afib 3d later to abdominal surgery and/or anesthesia, i.e a "reversible" etiology of fib. - CHADS VASC = 4, hence AC indicated. dr gordillo discussed risk/benefit with patient and family and they agree with plan. - per d/w surgery (dr cano), no contraindication for full-dose AC - pt >80 yrs, old, wt <60 kg--eliquis 2.5 bid started. - home lopressor 100 qd changed to toprol 50 bid here. - since was rapid despite high dose BB at home (though short-acting formulation) , will add diltiazem 30 TID here. - no palpitations or other new sx's (only her GERD) at home, despite very rapid HR to 160-170. advised pt of risk for tachy-CMP and/or CHF in future, and importance to f/u with us for monitoring. - tele remains NSR, no bradycardia. - ok for discharge from [facility] p.[facility]recommend continue toprol 50 bid and diltiazem 30 TID until sees us in office (can change to cardizem CD 120 qd at that time if bp/hr stable and no s.e.) - would benefit from echo (can be done as outpatient, will not change mgmt accutely if remains clinically stable) - small bilateral effusions on ct scan, ? sec to recent abd surgery. limit IVF. defer lasix at present unless sob sx's. - no signs of ACS, see below cp/epigastric pain: - burning quality, consistent with her prior known GERD. sx's well controlled with PPI in past, but recurred off med. - nonspecific ST-Ts on ekg, not ischemic in appearance. trop neg x 2. - PPI started here - observe sx's. - defer stress test unless sx's of myocardial ischemia develop (or atyp cp persists on PPI) htn - bp controlled - continue metoprolol. - also on lotrel at home, diltiazem added here for AF rate control - consider add back PATTI later depending on bp, once AVN blockers are optimized abdominal pain s/p surgery - surgery following.
[2017-02-23] MEDS: MONTELUKAST NA 10 MG TABLET PO SCH (22:24)
[2017-02-24] MEDS ORDERED: morphine CARPU-JECT 10 MG/1 ML DISP.SYRIN IM ONE (01:51)
[2017-02-24] MEDS: NITROFURANTOIN MACROCRYSTAL 50 MG CAPSULE (FP) PO SCH ×2 (07:02→11:05)
[2017-02-24] MEDS: dilTIAZem HCL 30 MG TABLET (FP) PO SCH (07:02)
[2017-02-24] MEDS ORDERED: PT OWN MED DRAWER 7, Y5N ONE ×2 (07:06→09:54)
[2017-02-24] MEDS: PANTOPRAZOLE 40 MG TABLET (FP) PO SCH (09:56)
[2017-02-24] MEDS: APIXABAN 2.5 MG TABLET PO SCH (09:56)
[2017-02-24] MEDS: SOLIFENACIN SUCCINATE 5 MG TAB (FP) PO SCH (09:56)
[2017-02-24] MEDS: METOPROLOL SUCCINATE 50 MG TAB.SR.24H (FP) PO SCH (09:56)
[2017-02-24] MEDS: POLYETHYLENE GLYCOL 3350 119 GM BTL PO SCH ×2 (09:56→10:59)
--- NOTE | 2017-02-24 10:24 | PN ---
Progress Note (short form) - Note Progress Note: comfortable son at bedside discussed . initially thinking going for str- now saying - will go home pt feels well Vital Signs Temp 98.6 F 02/24/17 06:00 Pulse 67 02/24/17 06:00 Resp 20 02/24/17 06:00 BP 140/67 02/24/17 06:00 Pulse Ox 97 02/23/17 10:00 Intake & Output 02/23/17 02/23/17 02/24/17 11:59 23:59 11:59 Intake Total 500 470 100 Balance 500 470 100 Intake: Oral 500 470 100 Other: Voiding Method Diaper Diaper # Unmeasured Voids Straight Cath 1 Void 1 2 Bowel Movement No Yes # Bowel Movements 1 Active Medications Acetaminophen (Tylenol -) 650 mg PO Q6H PRN PRN Reason: PAIN LEVEL 1-5 Last Admin: 02/24/17 01:28 Dose: 650 mg Al Hydroxide/Mg Hydroxide (Mylanta Oral Suspension -) 30 ml PO Q6H PRN PRN Reason: DYSPEPSIA Last Admin: 02/21/17 19:52 Dose: 30 ml Apixaban (Eliquis -) 2.5 mg PO BID [facility] Last Admin: 02/24/17 09:56 Dose: 2.5 mg Diltiazem HCl (Cardizem -) 30 mg PO TID [facility] Last Admin: 02/24/17 07:02 Dose: 30 mg Metoprolol Succinate (Toprol Xl -) 50 mg PO BID [facility] Last Admin: 02/24/17 09:56 Dose: 50 mg Montelukast Sodium (Singulair -) 10 mg PO HS [facility] Last Admin: 02/23/17 22:24 Dose: 10 mg Nitrofurantoin Macrocrystals (Macrodantin -) 50 mg PO Q6HPO [facility] Last Admin: 02/24/17 07:02 Dose: 50 mg Ondansetron HCl (Zofran -) 4 mg PO Q8H PRN PRN Reason: NAUSEA AND/OR VOMITING Last Admin: 02/21/17 09:17 Dose: 4 mg Pantoprazole Sodium (Protonix -) 40 mg PO DAILY [facility] Last Admin: 02/24/17 09:56 Dose: 40 mg Polyethylene Glycol (Miralax (For Daily Use) -) 17 gm PO DAILY [facility] Last Admin: 02/24/17 09:56 Dose: 17 gm Sodium Chloride ([place] Nasal [place]ien[place] -) 1 spray NS Q6H PRN PRN Reason: NASAL CONGESTION Solifenacin (Vesicare -) 10 mg PO DAILY [facility] Last Admin: 02/24/17 09:56 Dose: 10 mg CBC, BMP 02/22/17 06:20 02/22/17 06:20 Physical Examination Constitutional: Yes: Calm/ comfortable. Eyes: Yes: Conjunctiva Clear Neck: Yes: Supple. no jvd .no bruie Cardiovascular: Yes: Regular Rate and Rhythm (converted to sinus). Respiratory: Yes: Diminished (at bases) Gastrointestinal: Yes: Soft/ non tender . Edema: No Neurological: Yes: Alert Psychiatric: Yes: Alert Imaging - Results Cat Scan: Report Reviewed EKG: Report Reviewed Assessment/Plan New onset afib-- converted to sinus Abdominal pain- resolved recent robotic senior lead java developer surgery Hiatal hernia urinary retention- post -op resolved uti-- e coli- esbl stable anticipate d/c home today discussed in detail with pt/ son. instructions given - especially to follow with her pmd in one week Discussed with pts private pmd also. see d/c summary of 02/23/17 Problem List - Problems (2) Hypertension Code(s): I10 - ESSENTIAL (PRIMARY) HYPERTENSION (3) Atrial fibrillation Code(s): I48.91 - UNSPECIFIED ATRIAL FIBRILLATION Qualifiers: Atrial fibrillation type: paroxysmal Qualified Code(s): I48.0 - Paroxysmal atrial fibrillation (4) Hiatal hernia Code(s): K44.9 - DIAPHRAGMATIC HERNIA WITHOUT OBSTRUCTION OR GANGRENE
[2017-02-24 10:38] VITALS: BP 150/79; PULSE 69; TEMP 97.8
== END 2017-02-24 13:02 | disposition home health service (06) | DRG 309 ==
LOC: JER 07:42 → JERBED 15:26 → J4W 18:45 → J5S 02-22 17:55
PROVIDERS: ADMIT Internal Medicine; ATTEND Internal Medicine
DX: I48.91 Unspecified atrial fibrillation (principal); N39.0 Urinary tract infection, site not specified; J98.11 Atelectasis; B96.29 Other Escherichia coli [E. coli] as the cause of diseases classified elsewhere; Z98.890 Other specified postprocedural states; K44.9 Diaphragmatic hernia without obstruction or gangrene; R33.9 Retention of urine, unspecified; I10 Essential (primary) hypertension; Z90.710 Acquired absence of both cervix and uterus; K21.9 Gastro-esophageal reflux disease without esophagitis; M47.814 Spondylosis without myelopathy or radiculopathy, thoracic region; N39.490 Overflow incontinence
CPT/HCPCS: 36415; 71045-TC; 71275-TC; 74174-TC; 80048; 80053; 81003; 81015; 82550; 83605; 83735; 84100; 84443; 84484; 85025; 85027; 85379; 85610; 85730; 86850; 86900; 86901; 87086; 87186; 88307-TC; 88331-TC; 93005; 93010; 94010; 94760; 97116-GP; 97161-GP; 99284-25

== ENCOUNTER 2019-11-11 23:28 | Emergency (ER) | payer OTHER ==
--- NOTE | 2019-11-11 23:39 | PDOC ---
History of Present Illness - General Stated Complaint: HEMORRHAGE Time Seen by Provider: 11/11/19 23:33 - History of Present Illness Initial Comments: 11/12/19 01:42 84yo F w/ PMHx DM, HTN, vaginal prolapse, and TAHBSO presents s/p 1 episode of vaginal vs. rectal bleeding today. She went to have a BM and when she wiped she noticed blood. "There was a lot of it; I had to flush 5 times, and when i stood up it was dripping." She does not know whether it was coming from the vagina. She denies a h/o vaginal or rectal bleeds. She presented today with no active bleeding. Denies bleeding disorders, foreign body insertion, dysuria, hematuria, or trauma. Denies any knowledge of cancer. Past History - Medical History Allergies/Adverse Reactions: Allergies Allergy/AdvReac Type Severity Reaction Status Date / Time No Known Allergies Allergy Verified 02/19/17 07:47 Home Medications: Ambulatory Orders Pantoprazole Sodium [Protonix -] 40 mg PO DAILY tablet.ec 02/23/17 Diltiazem HCl [Diltiazem 24Hr ER] 120 mg PO DAILY 11/11/19 Metoprolol Tartrate 50 mg PO HS 11/11/19 Metoprolol Tartrate 100 mg PO AM 11/11/19 Valsartan 320 mg PO DAILY 11/11/19 Aspirin [Aspirin EC] 81 mg PO DAILY 11/12/19 Chlordiazepoxide/Clidinium Br [Chlordiazepoxide-Clidinium Cap] 1 each PO BID 11/12/19 Sulfamethoxazole/Trimethoprim [Bactrim Ds -] 1 tab PO BID #14 tablet 11/12/19 Anemia: No Asthma: No Cancer: No Cardiac Disorders: No CVA: No COPD: No CHF: No DVT: No Dementia: No Diabetes: No GI Disorders: Yes (GERD) Disorders: Yes (Urgency incontinence) HTN: Yes Hypercholesterolemia: No Liver Disease: No Seizures: No Thyroid Disease: No - Surgical History Abdominal Surgery: Yes (Hysterectomy w/Salphingectomy) - Psycho-Social/Smoking History Smoking History: Never smoked Have you smoked in the past 12 months: No Review of Systems - Review of Systems Able to Perform ROS?: Yes Is the patient limited [place]anese proficient: No Constitutional: No: Chills, Diaphoresis, Fever HEENTM: Yes: See HPI. No: Blurred Vision, Recent change in vision, Throat Swelling Respiratory: No: Cough, Shortness of Breath Cardiac (ROS): No: Chest Pain, Lightheadedness, Palpitations ABD/GI: Yes: Rectal Bleeding (possible ). No: Blood Streaked Bowels, Diarrhea, Difficulty Swallowing, Nausea, Vomiting, Tarry Stools : Yes: Hematuria. No: Burning, Dysuria, Discharge, Pain Musculoskeletal: No: Muscle Weakness Integumentary: No: Bruising, Erythema Neurological: No: Headache, Numbness, Tingling, Unsteady Gait, Dizziness Endocrine: No: Symptoms Reported Hematologic/Lymphatic: No: Symptoms Reported *Physical Exam - Physical Exam General Appearance: Yes: Nourished, Appropriately Dressed. No: Apparent Distress HEENT: positive: EOMI, Normal Voice Neck: positive: Trachea midline, Supple. negative: Tender Respiratory/Chest: positive: Lungs Clear, Normal Breath Sounds. negative: Chest Tender, Accessory Muscle Use, Labored Respiration, Rapid RR Cardiovascular: positive: Regular Rhythm, Regular Rate Female Pelvic Exam: positive: other. negative: normal external exam (evagination of vaginal mucosa evident. Stage 3 vs. Procidentia), discharge, vaginal bleeding ED Treatment Course - LABORATORY CBC & Chemistry Diagram: 11/11/19 00:00 11/11/19 00:00 Discharge - Discharge Information Problems reviewed: Yes Clinical Impression/Diagnosis: Prolapse of vaginal wall Vaginal abrasion Qualifiers: Encounter type: initial encounter Qualified Code(s): S30.814A - Abrasion of vagina and vulva, initial encounter UTI (urinary tract infection) Qualifiers: Urinary tract infection type: site unspecified Hematuria presence: with hematuria Qualified Code(s): N39.0 - Urinary tract infection, site not specified Condition: Stable Disposition: HOME - Admission No - Additional Discharge Information Prescriptions: Sulfamethoxazole/Trimethoprim [Bactrim Ds -] 1 tab PO BID #14 tablet - Follow up/Referral Referrals: Ariel Fernandes MD [Primary Care Provider] - Daniela Dunn MD [Staff Physician] - Lavon Michael MD [Staff Physician] - - Patient Discharge Instructions Patient Printed Discharge Instructions: DI for Vaginal Prolapse, DI for Urinary Tract Infection (UTI) Additional Instructions: You came to the ED after noticing blood in the toilet after a bowel movement. We examined you and found: 1. vaginal wall prolapse. Please follow up on Wednesday with Dr. Daniela Dunn within 48 hours of leaving the ED. Her information is included in this packet. 2. urinary tract infection. We sent you a prescription for antibiotics. Please take the entire course. 3. positive fecal occult blood on rectal exam. Please follow up with GI (Dr. Dye) within 48hours of leaving the ED. Please return to the ED if: 1. you begin to bleed again and cannot get it to stop. 2. you begin to bleed again and feel lightheaded, pass out, or you feel weak. 3. you develop any other severe symptoms. - Post Discharge Activity
[2019-11-11 23:53] VITALS: PULSE 71; TEMP 98.1; BMI 22.3
--- NOTE | 2019-11-11 23:54 | PDOC ---
Attending Attestation - Resident Resident Name: Brodie Arzola - ED Attending Attestation I have performed the following: I have examined & evaluated the patient, The case was reviewed & discussed with the resident, I agree w/resident's findings & plan - HPI HPI: 11/12/19 01:57 Pt comes with vaginal bleeding today - Physicial Exam PE: 11/12/19 01:58 Pt has skin tear at the outer area of vagina. Pt has torn skin from washing with a wash cloth in the area Pt has also prolapsed vag tissues (pt is post hysterectomy) No tenderness in her vaginal area, no suprapubic pain no bleeding hemorrhoids, though pt has several hemorrhoids. pt has normal rest of exam -- agree with resident exam 11/12/19 04:46 Agree with resident exam - Medical Decision Making 11/12/19 02:03 Pt had a straight cath; clear urine pt has dried blood in the perineal area. Pt has + guaiac as a result. Pt will follow with [facility]. 11/12/19 04:48 pt will go home with her son Heart Score/ECG Review - ECG Intrepretation Rhythm: Regular Rhythm - [place]: Right [place] Deviation - QRS Widened: RBBB - ST and T Early Repolarization: No Non Specific ST-T Wave changes: No - ECG Impressions Normal ECG: Yes Non-specific ST Elevation: No Ischemic Changes: No Bradycardia: No Torsades kaur Pointes: No WPW: No Discharge - Discharge Information Problems reviewed: Yes Clinical Impression/Diagnosis: Prolapse of vaginal wall Vaginal abrasion Qualifiers: Encounter type: initial encounter Qualified Code(s): S30.814A - Abrasion of vagina and vulva, initial encounter UTI (urinary tract infection) Qualifiers: Urinary tract infection type: site unspecified Hematuria presence: with hematuria Qualified Code(s): N39.0 - Urinary tract infection, site not specified Condition: Stable Disposition: HOME - Additional Discharge Information Prescriptions: Sulfamethoxazole/Trimethoprim [Bactrim Ds -] 1 tab PO BID #14 tablet - Follow up/Referral Referrals: Daniela Dunn MD [Staff Physician] - Lavon Michael MD [Staff Physician] - Ariel Fernandes MD [Primary Care Provider] - - Patient Discharge Instructions Patient Printed Discharge Instructions: DI for Vaginal Prolapse, DI for Urinary Tract Infection (UTI) Additional Instructions: You came to the ED after noticing blood in the toilet after a bowel movement. We examined you and found: 1. vaginal wall prolapse. Please follow up on Wednesday with Dr. Daniela Dunn within 48 hours of leaving the ED. Her information is included in this packet. 2. urinary tract infection. We sent you a prescription for antibiotics. Please take the entire course. 3. positive fecal occult blood on rectal exam. Please follow up with GI (Dr. Dye) within 48hours of leaving the ED. Please return to the ED if: 1. you begin to bleed again and cannot get it to stop. 2. you begin to bleed again and feel lightheaded, pass out, or you feel weak. 3. you develop any other severe symptoms. - Post Discharge Activity
[2019-11-12 00:37] LABS: INR 0.87 (0.83-1.09); PROTHROMBIN TIME (PATIENT) 10.2 SEC (9.7-13.0)
[2019-11-12 00:40] LABS: ACTIVATED PTT 27.4 SECONDS (25.2-36.5)
[2019-11-12 00:50] LABS: BASO % 0.6 % (0-2.0); EOS % 1.9 % (0-4.5); HEMATOCRIT 37.2 % (32.4-45.2); HEMOGLOBIN 12.8 GM/dL (10.7-15.3); MCH 33.7 pg (25.7-33.7); MCHC 34.4 g/dl (32.0-36.0); MEAN PLT VOLUME 8.2 fl (7.5-11.1); MONO % 8.4 % (3.8-10.2); NEUT % 60.1 % (42.8-82.8); PLATELET COUNT 249 K/MM3 (134-434); RBC 3.79 M/mm3 (3.60-5.2); RDW 12.8 % (11.6-15.6)
[2019-11-12 01:02] LABS: ALBUMIN 3.8 g/dl (3.4-5.0); BILIRUBIN,TOTAL 0.4 mg/dL (0.2-1); BLOOD UREA NITROGEN 39.3 mg/dL (7-18); CALCIUM 9.1 mg/dL (8.5-10.1); CREATININE 1.3 mg/dL (0.55-1.3); POTASSIUM 4.4 mmol/L (3.5-5.1); TOT PROT 6.9 g/dl (6.4-8.2)
[2019-11-12] MEDS ORDERED: LACTATED RINGERS SOLUTION 1000 ML INFUS.BAG IV ONE (01:04)
[2019-11-12 01:13] VITALS: BP 148/87
[2019-11-12] MEDS ORDERED: LIDOCAINE VISCOUS 2% ORAL/TOP 20 ML UNIT-DOSE CUP MM ONE (01:20)
[2019-11-12 02:06] LABS: EPI CELLS 2 /uL (0-25.1); HYALINE CASTS 1 /uL (0-3.1); PH,URINE 5.5 (5.0-8.0); URINE APPEARANCE CLOUDY; URINE BACTERIA >9,000 /uL (0-1359); URINE BILIRUBIN NEGATIVE (NEGATIVE); URINE COLOR YELLOW; URINE GLUCOSE (UA) NEGATIVE (NEGATIVE); URINE KETONE NEGATIVE (NEGATIVE); URINE LEUK ESTERASE 2+ (NEGATIVE); URINE NITRITE POSITIVE (NEGATIVE); URINE PROTEIN NEGATIVE (NEGATIVE); URINE RBC 8 /uL (0-23.9); URINE UROBILINOGEN 0.2 mg/dL (0.2-1.0); URINE WBC 254 /uL (0-25.8)
[2019-11-12] MEDS ORDERED: SULFAMETHOXAZOLE/TRIMETHOPRIM 800MG/160MG D.S. TABLET PO ONE (02:17)
--- NOTE | 2019-11-12 20:01 | EKG ---
Test Reason : Blood Pressure : / mmHG Vent. Rate : 064 BPM Atrial Rate : 064 BPM P-R Int : 182 ms QRS Dur : 132 ms QT Int : 418 ms P-R-T Axes : 070 001 017 degrees QTc Int : 431 ms NORMAL SINUS RHYTHM RIGHT BUNDLE BRANCH BLOCK T WAVE ABNORMALITY, CONSIDER LATERAL ISCHEMIA ABNORMAL ECG WHEN COMPARED WITH ECG OF 19-FEB-2017 12:42, NO SIGNIFICANT CHANGE WAS FOUND Confirmed by OBED HATFIELD MD ([id number]) on 11/12/2019 8:00:52 PM Referred By: Confirmed By:OBED HATFIELD MD
== END 2019-11-12 02:43 | disposition home or self-care (01) ==
LOC: JER 23:28
DX: S30.814A Abrasion of vagina and vulva, initial encounter (principal); N39.0 Urinary tract infection, site not specified
CPT/HCPCS: 36415; 80053; 81003; 82272; 85025; 85610; 85730; 86850; 86900; 86901; 93005; 93010; 99284-25

== ENCOUNTER 2022-02-18 11:43 | Emergency (ER) | payer OTHER, BC ==
[2022-02-18 12:39] VITALS: TEMP 98.2; BMI 30.8
[2022-02-18 14:29] LABS: EPI CELLS 31 /uL (0-25.1); HYALINE CASTS 22 /uL (0-3.1); PH,URINE 6.5 (5.0-8.0); URINE APPEARANCE TURBID; URINE BACTERIA >9,000 /uL (0-1359); URINE BILIRUBIN NEGATIVE (NEGATIVE); URINE COLOR YELLOW; URINE GLUCOSE (UA) NEGATIVE (NEGATIVE); URINE KETONE NEGATIVE (NEGATIVE); URINE LEUK ESTERASE 3+ (NEGATIVE); URINE NITRITE NEGATIVE (NEGATIVE); URINE PROTEIN 3+ (NEGATIVE); URINE UROBILINOGEN 0.2 mg/dL (0.2-1.0); URINE WBC 13568 /uL (0-25.8)
[2022-02-18] MEDS ORDERED: CEPHALEXIN MONOHYDRATE 500 MG CAPSULE (UD) PO ONE (14:34)
[2022-02-18] MEDS ORDERED: CEPHALEXIN MONOHYDRATE 500 MG CAPSULE (UD) ONE (14:44)
[2022-02-18 14:49] LABS: URINE RBC 482 /uL (0-23.9); YEAST NO SEEN (NEGATIVE)
[2022-02-18 15:09] VITALS: BP 126/69; PULSE 93; RESP 20
== END 2022-02-18 15:09 | disposition home or self-care (01) ==
LOC: JER 11:43
DX: N39.0 Urinary tract infection, site not specified (principal)
CPT/HCPCS: 81003; 87086; 99283-25

== ENCOUNTER 2022-05-05 12:25 | Inpatient (IN) | payer OTHER, BC ==
[2022-05-05 13:48] LABS: HEMOGLOBIN 8.2 G/dL (10.7-15.3); MCH 31.3 pg (25.7-33.7); MCHC 32.9 g/dl (32.0-36.0); MEAN CELL VOLUME 94.9 fl (80-96); PLATELET COUNT 408.6 10^3/uL (134-434); RBC 2.63 10^6/uL (3.60-5.2); RDW 14.5 % (11.6-15.6); WHITE BLOOD COUNT 11.1 10^3/uL (4.0-10.8)
[2022-05-05 13:50] LABS: ALBUMIN 2.8 g/dl (3.4-5.0); BILIRUBIN,TOTAL 0.7 mg/dl (0.2-1); CALCIUM 8.7 mg/dl (8.5-10); CREATININE 2.1 mg/dl (0.55-1.3); TOT PROT 5.6 g/dl (6.4-8.2)
[2022-05-05] MEDS ORDERED: FUROSEMIDE 40 MG/4 ML INJECTABLE VIAL IVPUSH ONE (14:27)
[2022-05-05] MEDS ORDERED: FUROSEMIDE 40 MG/4 ML INJECTABLE VIAL ONE (16:18)
[2022-05-05 18:27] LABS: CREATININE, URINE RANDOM 26.7 mg/dL
[2022-05-05 19:11] VITALS: BMI 23.0
[2022-05-06 08:27] LABS: ALBUMIN 2.7 g/dl (3.4-5.0); BILIRUBIN,TOTAL 0.6 mg/dl (0.2-1); CALCIUM 8.7 mg/dl (8.5-10); CREATININE 2.3 mg/dl (0.55-1.3); MAGNESIUM 1.9 mg/dL (1.8-2.4); PHOSPHOROUS 3.4 mg/dl (2.5-4.9); TOT PROT 5.5 g/dl (6.4-8.2)
[2022-05-06 10:04] LABS: BASO % 0.8 % (0-2.0); EOS % 1.5 % (0-4.5); HEMATOCRIT 38.4 % (32.4-45.2); HEMOGLOBIN 12.8 GM/dL (10.7-15.3); LYMPH % 44.7 % (8-40); MCH 30.9 pg (25.7-33.7); MCHC 33.2 g/dl (32.0-36.0); MEAN CELL VOLUME 92.9 fl (80-96); MEAN PLT VOLUME 6.8 fl (7.5-11.1); MONO % 6.2 % (3.8-10.2); NEUT % 46.8 % (42.8-82.8); PLATELET COUNT 257 10^3/uL (134-434); RBC 4.13 M/mm3 (3.60-5.2); RDW 15.6 % (11.6-15.6); WHITE BLOOD COUNT 5.9 K/mm3 (4.0-10.0)
[2022-05-06] MEDS ORDERED: TAMSULOSIN HCL 0.4 MG CAP PO ONE (11:00)
[2022-05-06] MEDS: METOPROLOL TARTRATE 50 MG TABLET (FP) PO SCH ×2 (11:36→21:32)
[2022-05-06] MEDS: HEPARIN NA (PORCINE) 5,000 UNITS/ML 1ML VIAL SQ SCH ×2 (14:45→21:33)
[2022-05-07] MEDS: HEPARIN NA (PORCINE) 5,000 UNITS/ML 1ML VIAL SQ SCH ×3 (06:33→21:47)
[2022-05-07 08:38] LABS: ALBUMIN 2.6 g/dl (3.4-5.0); BILIRUBIN,TOTAL 0.6 mg/dl (0.2-1); CALCIUM 8.5 mg/dl (8.5-10); CREATININE 1.8 mg/dl (0.55-1.3); TOT PROT 5.4 g/dl (6.4-8.2)
[2022-05-07 10:03] LABS: MCHC 34.8 g/dl (32.0-36.0); MEAN PLT VOLUME 7.3 fl (7.5-11.1); WHITE BLOOD COUNT 7.1 K/mm3 (4.0-10.0)
[2022-05-07 10:13] LABS: BASO % 1.5 % (0-2.0); EOS % 2.7 % (0-4.5); HEMATOCRIT 24.2 % (32.4-45.2); HEMOGLOBIN 8.4 GM/dL (10.7-15.3); LYMPH % 22.3 % (8-40); MCH 32.1 pg (25.7-33.7); MEAN CELL VOLUME 92.2 fl (80-96); MONO % 8.3 % (3.8-10.2); NEUT % 65.2 % (42.8-82.8); PLATELET COUNT 431 10^3/uL (134-434); RBC 2.62 M/mm3 (3.60-5.2); RDW 14.8 % (11.6-15.6)
[2022-05-07] MEDS: METOPROLOL TARTRATE 50 MG TABLET (FP) PO SCH ×2 (12:00→21:48)
[2022-05-07] MEDS ORDERED: MEROPENEM 1 GM in DEXTROSE 5%-WATER 100 ML IVPB ONE (17:12)
[2022-05-08] MEDS: HEPARIN NA (PORCINE) 5,000 UNITS/ML 1ML VIAL SQ SCH ×3 (06:32→21:36)
[2022-05-08 08:17] LABS: ALBUMIN 2.5 g/dl (3.4-5.0); BILIRUBIN,TOTAL 0.4 mg/dl (0.2-1); CALCIUM 8.3 mg/dl (8.5-10); CREATININE 1.7 mg/dl (0.55-1.3)
[2022-05-08 10:09] LABS: HEMOGLOBIN 7.6 GM/dL (10.7-15.3)
[2022-05-08 10:48] LABS: BASO % 1.1 % (0-2.0); EOS % 4.3 % (0-4.5); HEMATOCRIT 22.1 % (32.4-45.2); LYMPH % 20.9 % (8-40); MCH 31.5 pg (25.7-33.7); MCHC 34.1 g/dl (32.0-36.0); MEAN CELL VOLUME 92.2 fl (80-96); MEAN PLT VOLUME 6.9 fl (7.5-11.1); MONO % 8.9 % (3.8-10.2); NEUT % 64.8 % (42.8-82.8); PLATELET COUNT 430 10^3/uL (134-434); RDW 14.9 % (11.6-15.6); WHITE BLOOD COUNT 8.6 K/mm3 (4.0-10.0)
[2022-05-08] MEDS: MEROPENEM 500 MG in DEXTROSE 5%-WATER 100 ML IVPB SCH ×2 (12:19→21:36)
[2022-05-08] MEDS: METOPROLOL TARTRATE 50 MG TABLET (FP) PO SCH ×2 (12:20→21:36)
[2022-05-09] MEDS: HEPARIN NA (PORCINE) 5,000 UNITS/ML 1ML VIAL SQ SCH ×3 (06:41→21:03)
[2022-05-09] MEDS: METOPROLOL TARTRATE 50 MG TABLET (FP) PO SCH ×2 (10:10→21:03)
[2022-05-09] MEDS ORDERED: TAMSULOSIN HCL 0.4 MG CAP PO ONE (10:45)
[2022-05-09] MEDS: MEROPENEM 500 MG in DEXTROSE 5%-WATER 100 ML IVPB SCH ×2 (11:10→21:23)
[2022-05-09 12:21] LABS: ALBUMIN 2.6 g/dl (3.4-5.0); BILIRUBIN,TOTAL 0.6 mg/dl (0.2-1); CALCIUM 8.4 mg/dl (8.5-10); CREATININE 1.7 mg/dl (0.55-1.3); TOT PROT 5.3 g/dl (6.4-8.2)
[2022-05-09] MEDS: SODIUM ZIRCONIUM CYCLOSILICATE (LOKELMA) 5 GM PACKET PO SCH (12:35)
[2022-05-09 13:16] LABS: HEMATOCRIT 25.1 % (32.4-45.2); HEMOGLOBIN 8.3 GM/dL (10.7-15.3); MCH 30.6 pg (25.7-33.7); MCHC 33.2 g/dl (32.0-36.0); MEAN CELL VOLUME 92.2 fl (80-96); MEAN PLT VOLUME 6.9 fl (7.5-11.1); PLATELET COUNT 456 10^3/uL (134-434); RBC 2.72 M/mm3 (3.60-5.2); RDW 14.9 % (11.6-15.6); WHITE BLOOD COUNT 7.3 K/mm3 (4.0-10.0)
[2022-05-09] MEDS: ACETAMINOPHEN 325 MG TABLET (FP) PO PRN (21:22)
[2022-05-10] MEDS: HEPARIN NA (PORCINE) 5,000 UNITS/ML 1ML VIAL SQ SCH ×3 (06:29→21:10)
[2022-05-10 08:50] LABS: ALBUMIN 2.6 g/dl (3.4-5.0); BILIRUBIN,TOTAL 0.4 mg/dl (0.2-1); CALCIUM 8.4 mg/dl (8.5-10); CREATININE 1.7 mg/dl (0.55-1.3); TOT PROT 5.1 g/dl (6.4-8.2)
[2022-05-10 10:34] LABS: EOS % 6.4 % (0-4.5); HEMATOCRIT 25.3 % (32.4-45.2); HEMOGLOBIN 8.4 GM/dL (10.7-15.3); LYMPH % 32.7 % (8-40); MCH 30.6 pg (25.7-33.7); MCHC 33.4 g/dl (32.0-36.0); MEAN CELL VOLUME 91.7 fl (80-96); MEAN PLT VOLUME 6.9 fl (7.5-11.1); MONO % 8.9 % (3.8-10.2); PLATELET COUNT 449 10^3/uL (134-434); RBC 2.76 M/mm3 (3.60-5.2); RDW 14.6 % (11.6-15.6); WHITE BLOOD COUNT 7.2 K/mm3 (4.0-10.0)
[2022-05-10] MEDS: ACETAMINOPHEN 325 MG TABLET (FP) PO PRN ×2 (11:02→21:10)
[2022-05-10] MEDS: METOPROLOL TARTRATE 50 MG TABLET (FP) PO SCH ×2 (11:03→21:10)
[2022-05-10] MEDS: MEROPENEM 500 MG in DEXTROSE 5%-WATER 100 ML IVPB SCH ×2 (11:03→22:00)
[2022-05-10] MEDS: SODIUM ZIRCONIUM CYCLOSILICATE (LOKELMA) 5 GM PACKET PO SCH (11:03)
[2022-05-11] MEDS: HEPARIN NA (PORCINE) 5,000 UNITS/ML 1ML VIAL SQ SCH ×3 (06:29→21:38)
[2022-05-11 09:29] LABS: BILIRUBIN,TOTAL 0.4 mg/dl (0.2-1); CALCIUM 7.8 mg/dl (8.5-10); TOT PROT 5.6 g/dl (6.4-8.2)
[2022-05-11 10:20] LABS: BASO % 1.4 % (0-2.0); EOS % 8.9 % (0-4.5); HEMATOCRIT 26.6 % (32.4-45.2); HEMOGLOBIN 8.9 GM/dL (10.7-15.3); LYMPH % 29.9 % (8-40); MCH 30.7 pg (25.7-33.7); MCHC 33.4 g/dl (32.0-36.0); MEAN CELL VOLUME 91.9 fl (80-96); MEAN PLT VOLUME 7.1 fl (7.5-11.1); MONO % 8.6 % (3.8-10.2); NEUT % 51.2 % (42.8-82.8); PLATELET COUNT 452 10^3/uL (134-434); RDW 14.6 % (11.6-15.6); WHITE BLOOD COUNT 7.4 K/mm3 (4.0-10.0)
[2022-05-11] MEDS: MEROPENEM 500 MG in DEXTROSE 5%-WATER 100 ML IVPB SCH ×2 (10:44→21:38)
[2022-05-11] MEDS: METOPROLOL TARTRATE 50 MG TABLET (FP) PO SCH ×2 (10:44→21:39)
[2022-05-12] MEDS: HEPARIN NA (PORCINE) 5,000 UNITS/ML 1ML VIAL SQ SCH ×3 (06:50→21:29)
[2022-05-12] MEDS: MEROPENEM 500 MG in DEXTROSE 5%-WATER 100 ML IVPB SCH ×2 (09:22→21:29)
[2022-05-12] MEDS: METOPROLOL TARTRATE 50 MG TABLET (FP) PO SCH ×2 (09:23→21:29)
[2022-05-13] MEDS: HEPARIN NA (PORCINE) 5,000 UNITS/ML 1ML VIAL SQ SCH (06:08)
[2022-05-13 08:46] LABS: CALCIUM 8.6 mg/dl (8.5-10); CREATININE 1.8 mg/dl (0.55-1.3)
[2022-05-13 09:51] LABS: BASO % 1.3 % (0-2.0); EOS % 9.1 % (0-4.5); HEMATOCRIT 23.3 % (32.4-45.2); LYMPH % 29.9 % (8-40); MCH 31.5 pg (25.7-33.7); MCHC 34.2 g/dl (32.0-36.0); MEAN PLT VOLUME 6.8 fl (7.5-11.1); MONO % 9.4 % (3.8-10.2); NEUT % 50.3 % (42.8-82.8); PLATELET COUNT 425 10^3/uL (134-434); RBC 2.53 M/mm3 (3.60-5.2); WHITE BLOOD COUNT 8.2 K/mm3 (4.0-10.0)
[2022-05-13] MEDS: METOPROLOL TARTRATE 50 MG TABLET (FP) PO SCH (10:35)
[2022-05-13] MEDS: MEROPENEM 500 MG in DEXTROSE 5%-WATER 100 ML IVPB SCH (10:35)
[2022-05-13 11:27] VITALS: BP 160/87; PULSE 87; RESP 17; TEMP 97.8
== END 2022-05-13 14:02 | disposition home or self-care (01) | DRG 291 ==
LOC: FER 12:25 → FM/S 14:52 → OBSVTOIN 05-08 11:19
PROVIDERS: ATTEND Internal Medicine
DX: I13.0 Hypertensive heart and chronic kidney disease with heart failure and stage 1 through stage 4 chronic kidney disease, or unspecified chronic kidney disease (principal); I50.33 Acute on chronic diastolic (congestive) heart failure; N17.0 Acute kidney failure with tubular necrosis; U07.1 COVID-19; E87.1 Hypo-osmolality and hyponatremia; N13.4 Hydroureter; N39.0 Urinary tract infection, site not specified; I48.91 Unspecified atrial fibrillation; E11.22 Type 2 diabetes mellitus with diabetic chronic kidney disease; N18.9 Chronic kidney disease, unspecified; K21.9 Gastro-esophageal reflux disease without esophagitis; E78.5 Hyperlipidemia, unspecified; N81.10 Cystocele, unspecified; B96.20 Unspecified Escherichia coli [E. coli] as the cause of diseases classified elsewhere; B96.5 Pseudomonas (aeruginosa) (mallei) (pseudomallei) as the cause of diseases classified elsewhere; E87.5 Hyperkalemia; N39.490 Overflow incontinence
CPT/HCPCS: 36415; 71045-TC-FY; 74176-TC; 76775-TC; 80048; 80053; 80061; 81003; 81015; 82436; 82533; 82570; 82962; 83036; 83735; 83930; 83935; 84100; 84133; 84300; 84439; 84443; 85025; 85027; 87086; 87186; 93005; 93306-TC; 97116-GP; 97162-GP; 99285-25; C9803-CS; G0378; J1644; U0003; U0005

== ENCOUNTER 2022-10-03 16:02 | Inpatient (IN) | payer OTHER, BC ==
[2022-10-03] MEDS ORDERED: ACETAMINOPHEN 1000 MG/100 ML BAG IVPB ONE (17:46)
[2022-10-03] MEDS ORDERED: SODIUM CHLORIDE 0.9% 500 ML INFUS.BAG IV ONE (17:46)
[2022-10-03] MEDS ORDERED: ACETAMINOPHEN INJECTION 100 ML IVPB ONE (17:51)
[2022-10-03 17:54] LABS: BASO % 0.2 % (0-2.0); EOS % 0.3 % (0-4.5); HEMATOCRIT 28.5 % (32.4-45.2); HEMOGLOBIN 9.5 GM/dL (10.7-15.3); LYMPH % 4.1 % (8-40); MCH 31.5 pg (25.7-33.7); MCHC 33.4 g/dl (32.0-36.0); MEAN CELL VOLUME 94.2 fl (80-96); MEAN PLT VOLUME 6.9 fl (7.5-11.1); MONO % 8.3 % (3.8-10.2); NEUT % 87.1 % (42.8-82.8); PLATELET COUNT 350 10^3/uL (134-434); RBC 3.02 M/mm3 (3.60-5.2); RDW 13.5 % (11.6-15.6); WHITE BLOOD COUNT 11.4 K/mm3 (4.0-10.0)
[2022-10-03 18:04] LABS: CALCIUM 9.8 mg/dL (8.5-10.1)
[2022-10-03 18:06] LABS: ALBUMIN 2.9 g/dl (3.4-5.0); BLOOD UREA NITROGEN 55.1 mg/dL (7-18)
[2022-10-03 18:08] LABS: CREATININE 2.4 mg/dL (0.55-1.3)
[2022-10-03 18:09] LABS: BILIRUBIN,TOTAL 0.4 mg/dL (0.2-1); TOT PROT 5.9 g/dl (6.4-8.2)
[2022-10-03 19:06] LABS: EPI CELLS >36 /uL (0-25.1); HYALINE CASTS 9 /uL (0-3.1); PH,URINE 7.5 (5.0-8.0); URINE APPEARANCE TURBID; URINE BACTERIA >9,000 /uL (0-1359); URINE BILIRUBIN NEGATIVE (NEGATIVE); URINE COLOR YELLOW; URINE GLUCOSE (UA) NEGATIVE (NEGATIVE); URINE KETONE NEGATIVE (NEGATIVE); URINE LEUK ESTERASE 3+ (NEGATIVE); URINE NITRITE NEGATIVE (NEGATIVE); URINE PROTEIN 3+ (NEGATIVE); URINE UROBILINOGEN 0.2 mg/dL (0.2-1.0); URINE WBC 931 /uL (0-25.8)
[2022-10-03] MEDS ORDERED: MEROPENEM 1 GM in DEXTROSE 5%-WATER 100 ML IVPB ONE (19:17)
[2022-10-03] MEDS ORDERED: MEROPENEM 1 GM VIAL (RESTRICTED TO ID) IVPB ONE (19:41)
[2022-10-03 20:02] LABS: URINE RBC 25.4 /uL (0-23.9)
[2022-10-03 23:07] VITALS: BMI 21.4
[2022-10-04] MEDS ORDERED: MEROPENEM 500 MG in DEXTROSE 5%-WATER 100 ML IVPB SCH (08:00)
[2022-10-04 08:38] LABS: BASO % 0.5 % (0-2.0); EOS % 1.3 % (0-4.5); HEMATOCRIT 29.7 % (32.4-45.2); LYMPH % 13.2 % (8-40); MCH 32.3 pg (25.7-33.7); MCHC 33.8 g/dl (32.0-36.0); MEAN CELL VOLUME 95.5 fl (80-96); MEAN PLT VOLUME 6.9 fl (7.5-11.1); MONO % 7.3 % (3.8-10.2); NEUT % 77.7 % (42.8-82.8); PLATELET COUNT 381 10^3/uL (134-434); RBC 3.11 M/mm3 (3.60-5.2); RDW 13.4 % (11.6-15.6); WHITE BLOOD COUNT 9.3 K/mm3 (4.0-10.0)
[2022-10-04 08:59] LABS: POTASSIUM 5.1 mmol/L (3.5-5.1)
[2022-10-04 09:05] LABS: CALCIUM 8.9 mg/dL (8.5-10.1)
[2022-10-04 09:06] LABS: ALBUMIN 2.6 g/dl (3.4-5.0); BLOOD UREA NITROGEN 45.4 mg/dL (7-18)
[2022-10-04 09:08] LABS: CREATININE 2.2 mg/dL (0.55-1.3)
[2022-10-04 09:09] LABS: BILIRUBIN,TOTAL 0.5 mg/dL (0.2-1); TOT PROT 5.6 g/dl (6.4-8.2)
[2022-10-04] MEDS: SODIUM CHLORIDE 0.45% 1,000 ML IV SCH (09:41)
[2022-10-04] MEDS: METOPROLOL TARTRATE 50 MG TABLET (FP) PO SCH ×2 (09:42→21:45)
[2022-10-04] MEDS: PANTOPRAZOLE 40 MG TABLET PO SCH (09:42)
[2022-10-04] MEDS: HEPARIN NA (PORCINE) 5,000 UNITS/ML 1ML VIAL SQ SCH ×2 (09:42→21:46)
[2022-10-04] MEDS: ASPIRIN COATED 81 MG TABLET.EC PO SCH (09:42)
[2022-10-04] MEDS: LIDOCAINE 5% TOPICAL PATCH TP SCH (09:42)
[2022-10-04] MEDS ORDERED: ACETAMINOPHEN 1000 MG/100 ML BAG IVPB PRN (10:36)
[2022-10-04] MEDS: POLYETHYLENE GLYCOL (HEALTHYLAX) 3350 17 GM PACKET PO SCH (12:24)
[2022-10-04] MEDS: ERTAPENEM SODIUM 0.5 GM in SODIUM CHLORIDE 50 ML IVPB SCH (15:53)
[2022-10-05] MEDS: LIDOCAINE PATCH REMOVAL MC SCH ×2 (07:03→21:29)
[2022-10-05] MEDS: METOPROLOL TARTRATE 50 MG TABLET (FP) PO SCH ×2 (10:18→21:29)
[2022-10-05] MEDS: POLYETHYLENE GLYCOL (HEALTHYLAX) 3350 17 GM PACKET PO SCH (10:18)
[2022-10-05] MEDS: HEPARIN NA (PORCINE) 5,000 UNITS/ML 1ML VIAL SQ SCH ×2 (10:18→21:28)
[2022-10-05] MEDS: SODIUM CHLORIDE 0.45% 1,000 ML IV SCH ×2 (10:18→13:34)
[2022-10-05] MEDS: ASPIRIN COATED 81 MG TABLET.EC PO SCH (10:18)
[2022-10-05] MEDS: PANTOPRAZOLE 40 MG TABLET PO SCH (10:18)
[2022-10-05] MEDS: LIDOCAINE 5% TOPICAL PATCH TP SCH (10:18)
[2022-10-05] MEDS: ERTAPENEM SODIUM 0.5 GM in SODIUM CHLORIDE 50 ML IVPB SCH (10:34)
[2022-10-06] MEDS: LIDOCAINE 5% TOPICAL PATCH TP SCH (10:06)
[2022-10-06] MEDS: ASPIRIN COATED 81 MG TABLET.EC PO SCH (10:06)
[2022-10-06] MEDS: PANTOPRAZOLE 40 MG TABLET PO SCH (10:06)
[2022-10-06] MEDS: HEPARIN NA (PORCINE) 5,000 UNITS/ML 1ML VIAL SQ SCH ×2 (10:06→21:09)
[2022-10-06] MEDS: SODIUM CHLORIDE 0.45% 1,000 ML IV SCH ×2 (10:06→15:22)
[2022-10-06] MEDS: METOPROLOL TARTRATE 50 MG TABLET (FP) PO SCH ×2 (10:06→21:13)
[2022-10-06] MEDS: POLYETHYLENE GLYCOL (HEALTHYLAX) 3350 17 GM PACKET PO SCH (10:06)
[2022-10-06] MEDS: ERTAPENEM SODIUM 0.5 GM in SODIUM CHLORIDE 50 ML IVPB SCH (11:43)
[2022-10-06 14:24] LABS: BLOOD UREA NITROGEN 26.2 mg/dL (7-18); CALCIUM 8.6 mg/dL (8.5-10.1)
[2022-10-06 14:27] LABS: CREATININE 1.5 mg/dL (0.55-1.3)
[2022-10-06] MEDS ORDERED: LORazepam 2 MG/ML SDV VIAL IVPUSH PRN (16:47)
[2022-10-06] MEDS: LIDOCAINE PATCH REMOVAL MC SCH (21:09)
[2022-10-07] MEDS: HEPARIN NA (PORCINE) 5,000 UNITS/ML 1ML VIAL SQ SCH ×2 (10:21→21:42)
[2022-10-07] MEDS: POLYETHYLENE GLYCOL (HEALTHYLAX) 3350 17 GM PACKET PO SCH (10:21)
[2022-10-07] MEDS: METOPROLOL TARTRATE 50 MG TABLET (FP) PO SCH ×2 (10:21→21:42)
[2022-10-07] MEDS: ASPIRIN COATED 81 MG TABLET.EC PO SCH (10:21)
[2022-10-07] MEDS: LIDOCAINE 5% TOPICAL PATCH TP SCH (10:21)
[2022-10-07] MEDS: PANTOPRAZOLE 40 MG TABLET PO SCH (10:21)
[2022-10-07] MEDS: SODIUM CHLORIDE 0.45% 1,000 ML IV SCH ×2 (10:22→17:48)
[2022-10-07] MEDS: ERTAPENEM SODIUM 0.5 GM in SODIUM CHLORIDE 50 ML IVPB SCH (10:44)
[2022-10-07 12:50] LABS: BASO % 1.1 % (0-2.0); EOS % 3.2 % (0-4.5); HEMATOCRIT 28.9 % (32.4-45.2); HEMOGLOBIN 9.6 GM/dL (10.7-15.3); LYMPH % 20.1 % (8-40); MCHC 33.1 g/dl (32.0-36.0); MEAN CELL VOLUME 96.6 fl (80-96); MEAN PLT VOLUME 6.9 fl (7.5-11.1); MONO % 9.2 % (3.8-10.2); NEUT % 66.4 % (42.8-82.8); PLATELET COUNT 470 10^3/uL (134-434); RBC 2.99 M/mm3 (3.60-5.2); RDW 12.9 % (11.6-15.6); WHITE BLOOD COUNT 7.5 K/mm3 (4.0-10.0)
[2022-10-07 13:32] LABS: POTASSIUM 4.7 mmol/L (3.5-5.1)
[2022-10-07 13:35] LABS: ALBUMIN 2.4 g/dl (3.4-5.0); BLOOD UREA NITROGEN 25.2 mg/dL (7-18); CALCIUM 8.2 mg/dL (8.5-10.1)
[2022-10-07 13:41] LABS: CREATININE 1.5 mg/dL (0.55-1.3); TOT PROT 5.2 g/dl (6.4-8.2)
[2022-10-07 13:43] LABS: BILIRUBIN,TOTAL 0.6 mg/dL (0.2-1)
[2022-10-07] MEDS: VALSARTAN 80 MG TABLET PO SCH (15:12)
[2022-10-07] MEDS: LIDOCAINE PATCH REMOVAL MC SCH (21:43)
[2022-10-08] MEDS: LIDOCAINE 5% TOPICAL PATCH TP SCH (10:50)
[2022-10-08] MEDS: VALSARTAN 80 MG TABLET PO SCH (10:51)
[2022-10-08] MEDS: PANTOPRAZOLE 40 MG TABLET PO SCH (10:51)
[2022-10-08] MEDS: HEPARIN NA (PORCINE) 5,000 UNITS/ML 1ML VIAL SQ SCH ×2 (10:51→21:18)
[2022-10-08] MEDS: ASPIRIN COATED 81 MG TABLET.EC PO SCH (10:51)
[2022-10-08] MEDS: POLYETHYLENE GLYCOL (HEALTHYLAX) 3350 17 GM PACKET PO SCH (10:51)
[2022-10-08] MEDS: METOPROLOL TARTRATE 50 MG TABLET (FP) PO SCH ×2 (10:51→21:18)
[2022-10-08] MEDS: ERTAPENEM SODIUM 0.5 GM in SODIUM CHLORIDE 50 ML IVPB SCH (10:52)
[2022-10-08] MEDS: SODIUM CHLORIDE 0.45% 1,000 ML IV SCH ×2 (10:52→16:56)
[2022-10-08] MEDS ORDERED: LORazepam 2 MG/ML SDV VIAL IVPUSH PRN (14:28)
[2022-10-08] MEDS: LIDOCAINE PATCH REMOVAL MC SCH (21:27)
[2022-10-09] MEDS: SODIUM CHLORIDE 0.45% 1,000 ML IV SCH (09:33)
[2022-10-09] MEDS: VALSARTAN 80 MG TABLET PO SCH (09:34)
[2022-10-09] MEDS: ERTAPENEM SODIUM 0.5 GM in SODIUM CHLORIDE 50 ML IVPB SCH (09:34)
[2022-10-09] MEDS: METOPROLOL TARTRATE 50 MG TABLET (FP) PO SCH ×2 (09:34→22:06)
[2022-10-09] MEDS: ASPIRIN COATED 81 MG TABLET.EC PO SCH (09:34)
[2022-10-09] MEDS: LIDOCAINE 5% TOPICAL PATCH TP SCH (09:34)
[2022-10-09] MEDS: PANTOPRAZOLE 40 MG TABLET PO SCH (09:34)
[2022-10-09] MEDS: POLYETHYLENE GLYCOL (HEALTHYLAX) 3350 17 GM PACKET PO SCH (09:34)
[2022-10-09] MEDS: HEPARIN NA (PORCINE) 5,000 UNITS/ML 1ML VIAL SQ SCH ×2 (09:34→22:07)
[2022-10-09] MEDS: LIDOCAINE PATCH REMOVAL MC SCH (22:13)
[2022-10-10 09:47] LABS: POTASSIUM 4.9 mmol/L (3.5-5.1)
[2022-10-10 09:53] LABS: CALCIUM 9.1 mg/dL (8.5-10.1)
[2022-10-10 09:54] LABS: CREATININE 1.5 mg/dL (0.55-1.3)
[2022-10-10 09:55] LABS: BILIRUBIN,TOTAL 0.4 mg/dL (0.2-1)
[2022-10-10 09:59] LABS: ALBUMIN 2.9 g/dl (3.4-5.0)
[2022-10-10] MEDS ORDERED: amLODIPine BESYLATE 5 MG TABLET (FP) PO ONE (10:44)
[2022-10-10] MEDS: LIDOCAINE 5% TOPICAL PATCH TP SCH (10:57)
[2022-10-10] MEDS: ASPIRIN COATED 81 MG TABLET.EC PO SCH (10:57)
[2022-10-10] MEDS: POLYETHYLENE GLYCOL (HEALTHYLAX) 3350 17 GM PACKET PO SCH (10:57)
[2022-10-10] MEDS: PANTOPRAZOLE 40 MG TABLET PO SCH (10:57)
[2022-10-10] MEDS: HEPARIN NA (PORCINE) 5,000 UNITS/ML 1ML VIAL SQ SCH ×2 (10:57→21:27)
[2022-10-10] MEDS: VALSARTAN 80 MG TABLET PO SCH (10:57)
[2022-10-10] MEDS: METOPROLOL TARTRATE 50 MG TABLET (FP) PO SCH ×2 (10:57→21:27)
[2022-10-10] MEDS: ERTAPENEM SODIUM 0.5 GM in SODIUM CHLORIDE 50 ML IVPB SCH (10:58)
[2022-10-10] MEDS: SODIUM CHLORIDE 0.45% 1,000 ML IV SCH (10:58)
[2022-10-10] MEDS: LIDOCAINE PATCH REMOVAL MC SCH (21:27)
[2022-10-11] MEDS: METOPROLOL TARTRATE 50 MG TABLET (FP) PO SCH ×2 (11:57→21:54)
[2022-10-11] MEDS: ASPIRIN COATED 81 MG TABLET.EC PO SCH (11:57)
[2022-10-11] MEDS: PANTOPRAZOLE 40 MG TABLET PO SCH (11:58)
[2022-10-11] MEDS: VALSARTAN 80 MG TABLET PO SCH (11:58)
[2022-10-11] MEDS: ERTAPENEM SODIUM 0.5 GM in SODIUM CHLORIDE 50 ML IVPB SCH (11:58)
[2022-10-11] MEDS: SODIUM CHLORIDE 0.45% 1,000 ML IV SCH (11:59)
[2022-10-11] MEDS: POLYETHYLENE GLYCOL (HEALTHYLAX) 3350 17 GM PACKET PO SCH (12:01)
[2022-10-11] MEDS: LIDOCAINE 5% TOPICAL PATCH TP SCH (12:01)
[2022-10-11] MEDS: LIDOCAINE PATCH REMOVAL MC SCH (21:54)
[2022-10-12] MEDS ORDERED: MECLIZINE HCL 25 MG TABLET (FP) PO ONE (01:02)
[2022-10-12] MEDS: SODIUM CHLORIDE 0.45% 1,000 ML IV SCH (02:41)
[2022-10-12] MEDS: ASPIRIN COATED 81 MG TABLET.EC PO SCH (10:34)
[2022-10-12] MEDS: POLYETHYLENE GLYCOL (HEALTHYLAX) 3350 17 GM PACKET PO SCH (10:34)
[2022-10-12] MEDS: METOPROLOL TARTRATE 50 MG TABLET (FP) PO SCH ×2 (10:34→21:20)
[2022-10-12] MEDS: VALSARTAN 80 MG TABLET PO SCH (10:34)
[2022-10-12] MEDS: PANTOPRAZOLE 40 MG TABLET PO SCH (10:34)
[2022-10-12] MEDS: LIDOCAINE 5% TOPICAL PATCH TP SCH (10:37)
[2022-10-12] MEDS ORDERED: ALPRAZolam 0.25 MG TABLET PO PRN (10:37)
[2022-10-12 12:33] LABS: BASO % 1.4 % (0-2.0); EOS % 1.7 % (0-4.5); HEMATOCRIT 31.1 % (32.4-45.2); HEMOGLOBIN 10.4 GM/dL (10.7-15.3); LYMPH % 23.4 % (8-40); MCH 32.4 pg (25.7-33.7); MCHC 33.3 g/dl (32.0-36.0); MEAN CELL VOLUME 97.3 fl (80-96); MEAN PLT VOLUME 6.5 fl (7.5-11.1); MONO % 8.6 % (3.8-10.2); NEUT % 64.9 % (42.8-82.8); PLATELET COUNT 680 10^3/uL (134-434); RDW 12.9 % (11.6-15.6); WHITE BLOOD COUNT 9.7 K/mm3 (4.0-10.0)
[2022-10-12 12:53] LABS: CALCIUM 8.8 mg/dL (8.5-10.1)
[2022-10-12 12:54] LABS: ALBUMIN 2.9 g/dl (3.4-5.0); BLOOD UREA NITROGEN 33.7 mg/dL (7-18)
[2022-10-12 12:57] LABS: CREATININE 1.7 mg/dL (0.55-1.3)
[2022-10-12 12:59] LABS: BILIRUBIN,TOTAL 0.4 mg/dL (0.2-1)
[2022-10-12] MEDS: LIDOCAINE PATCH REMOVAL MC SCH (21:23)
[2022-10-13 07:08] VITALS: PULSE 73; RESP 16
[2022-10-13] MEDS: METOPROLOL TARTRATE 50 MG TABLET (FP) PO SCH (10:19)
[2022-10-13] MEDS: POLYETHYLENE GLYCOL (HEALTHYLAX) 3350 17 GM PACKET PO SCH (10:20)
[2022-10-13] MEDS: ASPIRIN COATED 81 MG TABLET.EC PO SCH (10:20)
[2022-10-13] MEDS: PANTOPRAZOLE 40 MG TABLET PO SCH (10:20)
[2022-10-13] MEDS: LIDOCAINE 5% TOPICAL PATCH TP SCH (10:21)
[2022-10-13 14:55] VITALS: BP 112/60; TEMP 97.9
== END 2022-10-13 15:20 | DRG 690 ==
LOC: JER 16:02 → JERBED 21:13 → J8W 22:45
PROVIDERS: ADMIT Internal Medicine; ATTEND Internal Medicine
DX: N13.6 Pyonephrosis (principal); I13.0 Hypertensive heart and chronic kidney disease with heart failure and stage 1 through stage 4 chronic kidney disease, or unspecified chronic kidney disease; I50.32 Chronic diastolic (congestive) heart failure; Z16.12 Extended spectrum beta lactamase (ESBL) resistance; N17.9 Acute kidney failure, unspecified; B96.20 Unspecified Escherichia coli [E. coli] as the cause of diseases classified elsewhere; E78.5 Hyperlipidemia, unspecified; K21.9 Gastro-esophageal reflux disease without esophagitis; N18.9 Chronic kidney disease, unspecified; M54.50 Low back pain, unspecified; D72.829 Elevated white blood cell count, unspecified; N81.4 Uterovaginal prolapse, unspecified
CPT/HCPCS: 0241U-QW; 36415; 71045-TC-FY; 74176-TC; 76775-TC; 80048; 80053; 81003; 83605; 85025; 87040; 87086; 87186; 87635; 93005; 93010; 97116-GP; 97162-GP; 99285-25; J1644